=== PATIENT | female | born 1970 | race Caucasian/White ===

== ENCOUNTER → 2017-08-07 12:24 | Outpatient (CLI) | payer MEDICARE, MEDICAID, SELFPAY ==
[2017-08-07 12:49] LABS: Basophils # 0.1 K/mm3 (0-0.2); Basophils % 0.7 % (0.1-2.0); Eosinophils # 0.4 K/mm3 (0.0-0.4); Eosinophils % 3.5 % (0.1-12.0); Hematocrit 41.1 % (37.0-47.0); Hemoglobin 13.1 g/dL (12.2-16.2); Lymphocytes # 2.2 K/mm3 (0.7-4.5); Lymphocytes % 22.5 K/mm3 (10-50); Mean Corpuscular Hemoglobin 26.5 pg (27.0-31.2); Mean Corpuscular Volume 82.8 fl (81-99); Mean Platelet Volume 7.4 fl (7.4-10.4); Monocytes # 0.5 K/mm3 (0.1-1.0); Monocytes % 4.7 % (1.7-9.3); Neutrophils # 6.8 K/mm3 (1.8-7.8); Neutrophils % 68.6 % (37.0-80.0); Platelet Count 392 K/mm3 (142-424); Red Blood Count 4.97 M/mm3 (4.20-5.40); Red Cell Distribution Width 13.2 % (11.5-17.5); White Blood Count 9.9 K/mm3 (4.8-10.8)
[2017-08-07 13:53] LABS: Alanine Aminotransferase 51 U/L (12-78); Albumin Level 3.4 gm/dL (3.4-5.0); Albumin/Globulin Ratio 0.9 (1.1-1.8); Alkaline Phosphatase 82 U/L (46-116); Anion Gap 11.4 mEq/L (5-15); Aspartate Amino Transferase 49 U/L (15-37); Bilirubin,Total 0.3 mg/dL (0.2-1.0); Blood Urea Nitrogen 17 mg/dL (7-18); Calcium 9.3 mg/dL (8.5-10.1); Carbon Dioxide 30 mmol/L (21.0-32.0); Chloride 102 mmol/L (98-107); Creatinine,Serum 0.86 mg/dL (0.55-1.02); Estimated Glomerular Filt Rate > 60 ml/min (>60); GFR (African American) > 60 ML/MIN (>60); Glucose 100 mg/dL (74-106); Potassium 4.4 mmoL/L (3.5-5.1); Sodium 139 mmol/L (136-145); Total Protein,Serum 7.4 gm/dL (6.4-8.2)
[2017-08-08 17:18] LABS: Vitamin D 25 Hydroxy 30.3 ng/mL (30.0-100.0)
== END ==
PROVIDERS: PCP Nurse Practitioner Family; Visit Provider Nurse Practitioner Family
DX: K21.9 Gastro-esophageal reflux disease without esophagitis (principal); E55.9 Vitamin D deficiency, unspecified; M53.9 Dorsopathy, unspecified; G47.33 Obstructive sleep apnea (adult) (pediatric)
CPT/HCPCS: 36415; 80053; 82652; 85025

== ENCOUNTER → 2018-03-09 08:28 | Outpatient (CLI) | payer MEDICARE, MEDICAID, SELFPAY ==
--- NOTE | 2018-03-09 08:33 | MR_ITS ---
MR lumbar spine wo/w con, MR 3-d myelogram/MRCP HX back surgery XYRS ago. RT Leg numbness. LT leg tingling, numbness, and pain. LBP. HISTORY: ITS.REASON: ACUTE LEFT SIDED BACK PAIN WITH SCIATICA, LUMBAGO ORDERING PHYSICIAN: Renée Escudero PATIENT AGE: 48 years Comparison: MRI 02-14-11 TECHNIQUE: Standard multiplanar multiecho sequences are performed without contrast. 3-D MIP and myelographic images are also rendered and reviewed FINDINGS: There is normal alignment. The spinal cord ends at the L1-L2 level. T12-L1 and L1-L2 have an unremarkable appearance aside from slight decrease in the disc spaces at the levels. L2-L3: Mild concentric bulging disc. There is facet ligamentum flavum hypertrophy with moderate bilateral lateral recess and mild bilateral foraminal narrowing. L3-L4: Degenerative disc disease with moderate sized concentric bulging disc with broad-based disc protrusion centrally along with facet and ligamentum flavum hypertrophy with moderate bilateral foraminal narrowing and severe bilateral lateral recess narrowing with impingement upon both L4 nerve roots in transverse narrowing of the canal. This is similar when compared to the previous exam. L4-L5: Mild degenerative disc disease with bulging disc along with facet and ligamentum flavum hypertrophy with mild bilateral lateral recess and foraminal narrowing. L5-S1: Degenerative disc disease with bulging disc eccentric towards the left along with facet and ligamentum flavum hypertrophy with severe bilateral foraminal narrowing. The bulging disc does abut the anterior aspect of the left S1 nerve root. Postlaminectomy changes are present on the right at this level. There are type II endplate changes. No abnormal enhancement apparent. No acute fracture or other acute anomalies IMPRESSION: 1. Overall no significant change from 02/14/2011. 2. Multilevel lumbar spondylosis with degenerative disc disease, bulging disc, facet and ligamentum flavum hypertrophy with lateral recess and foraminal narrowing. Please above for detailed description at each level. There are postsurgical changes on the right L5-S1. No obvious epidural enhancement that would indicate epidural fibrosis 3. Degenerative disc disease at L3-L4 with moderate sized concentric bulging disc with broad-based disc protrusion centrally along with facet and ligamentum flavum hypertrophy with moderate bilateral foraminal narrowing and severe bilateral lateral recess narrowing with impingement upon both L4 nerve roots in transverse narrowing of the canal. This is similar when compared to the previous exam. 4. No disc herniation
--- NOTE | 2018-03-09 09:35 | HMH.ITSHM ---
HYDROCHLOROTHIAZIDE VESICARE TIZANIDINE TRAMADOL ESOMEPRAZOLE ESCITALOPRAM POTASSIUM DICLODENAC VITAMIN D-3
== END ==
PROVIDERS: Family Provider Internal Medicine Adolescent Medicine; PCP Nurse Practitioner Family; Visit Provider Nurse Practitioner Family
DX: M54.42 Lumbago with sciatica, left side (principal); M54.41 Lumbago with sciatica, right side; G89.29 Other chronic pain
CPT/HCPCS: 72158; 76376; A9576

== ENCOUNTER → 2018-06-02 09:39 | Outpatient (CLI) | payer MEDICARE, MEDICAID, SELFPAY ==
[2018-06-02 15:57] LABS: Alanine Aminotransferase 25 U/L (12-78); Albumin Level 3.3 gm/dL (3.4-5.0); Albumin/Globulin Ratio 0.8 (1.1-1.8); Alkaline Phosphatase 92 U/L (46-116); Anion Gap 12.9 mEq/L (5-15); Aspartate Amino Transferase 17 U/L (15-37); Bilirubin,Total 0.3 mg/dL (0.2-1.0); Blood Urea Nitrogen 14 mg/dL (7-18); Calcium 8.7 mg/dL (8.5-10.1); Carbon Dioxide 30 mmol/L (21.0-32.0); Chloride 100 mmol/L (98-107); Chol/HDL Ratio 3.6 (1-3.5); Cholesterol 160 mg/dL (140-200); Creatinine,Serum 0.92 mg/dL (0.55-1.02); Estimated Glomerular Filt Rate 66 ml/min (>60); GFR (African American) 80 ML/MIN (>60); Globulin 3.9 gm/dl (1.3-3.2); Glucose 99 mg/dL (74-106); HDL Cholesterol 45 mg/dL (29-89); LDL Cholesterol 81 mg/dL (0-130); Potassium 3.9 mmoL/L (3.5-5.1); Sodium 139 mmol/L (136-145); Total Protein,Serum 7.2 gm/dL (6.4-8.2); Triglycerides 168 mg/dL (30-200); VLDL Cholesterol 34 mg/dL (0-40)
[2018-06-03 14:45] LABS: Vitamin D 25 Hydroxy 39.9 ng/mL (30.0-100.0)
== END ==
PROVIDERS: PCP Nurse Practitioner Family; Visit Provider Nurse Practitioner Family
DX: Z00.00 Encounter for general adult medical examination without abnormal findings (principal); I10 Essential (primary) hypertension; E78.1 Pure hyperglyceridemia; E55.9 Vitamin D deficiency, unspecified
CPT/HCPCS: 36415; 80053; 80061; 82652

== ENCOUNTER → 2019-02-11 11:36 | Outpatient (CLI) | payer MEDICARE, MEDICAID, SELFPAY ==
--- NOTE | 2019-02-11 11:45 | XR_ITS ---
XR hip RT 2-3V w/pelvis HISTORY: ITS.REASON: RIGHT HIP PAIN ORDERING PHYSICIAN: Renée Escudero APRN PATIENT AGE: 49 years COMPARISON: None FINDINGS: No fracture or dislocation is evident. No significant degenerative change. No lytic or blastic change. There is an oval density in the right pelvic region measuring 14 x 7 mm. This could represent a nondigested tablet or a soft tissue calcification. Facet arthritic changes are present at the lumbosacral junction. There are mild degenerative changes in the SI joints IMPRESSION: Negative right hip. Degenerative changes SI joints and facets in the lower lumbar spine
== END ==
PROVIDERS: PCP Nurse Practitioner Family; Visit Provider Nurse Practitioner Family
DX: M25.551 Pain in right hip (principal)
CPT/HCPCS: 73502

== ENCOUNTER → 2019-04-12 09:37 | Outpatient (CLI) | payer MEDICARE, MEDICAID, SELFPAY ==
[2019-04-12 10:55] LABS: Alanine Aminotransferase 29 U/L (12-78); Albumin Level 3.2 gm/dL (3.4-5.0); Albumin/Globulin Ratio 0.8 (1.1-1.8); Alkaline Phosphatase 76 U/L (46-116); Anion Gap 10.6 mEq/L (5-15); Aspartate Amino Transferase 20 U/L (15-37); Bilirubin,Total 0.3 mg/dL (0.2-1.0); Blood Urea Nitrogen 14 mg/dL (7-18); Calcium 9.3 mg/dL (8.5-10.1); Carbon Dioxide 30 mmol/L (21.0-32.0); Chloride 103 mmol/L (98-107); Chol/HDL Ratio 3.4 (1-3.5); Cholesterol 159 mg/dL (140-200); Creatinine,Serum 0.91 mg/dL (0.55-1.02); Estimated Glomerular Filt Rate 66 ml/min (>60); GFR (African American) 80 ML/MIN (>60); Globulin 3.8 gm/dl (1.3-3.2); Glucose 101 mg/dL (74-106); HDL Cholesterol 47 mg/dL (29-89); LDL Cholesterol 74 mg/dL (0-130); Potassium 4.6 mmoL/L (3.5-5.1); Sodium 139 mmol/L (136-145); Triglycerides 189 mg/dL (30-200); VLDL Cholesterol 38 mg/dL (0-40)
[2019-04-13 10:33] LABS: Vitamin D 25 Hydroxy 30.3 ng/mL (30.0-100.0)
== END ==
PROVIDERS: Visit Provider Nurse Practitioner Family
DX: I10 Essential (primary) hypertension (principal); E78.1 Pure hyperglyceridemia; E55.9 Vitamin D deficiency, unspecified
CPT/HCPCS: 36415; 80053; 80061; 82652

== ENCOUNTER → 2019-09-23 16:54 | Outpatient (CLI) | payer MEDICARE, MEDICAID, SELFPAY ==
--- NOTE | 2019-09-23 17:16 | XR_ITS ---
PROCEDURE: XR KNEE RT 4V CLINICAL INDICATION: RIGHT ANTERIOR KNEE PAIN COMPARISON: KNEEAPSB KNEE-AP STANDING-BOTH KNEES from 08/27/2012 FINDINGS: No fracture or dislocation. No lytic or blastic change. There is normal mineralization. There is mild osteoarthritis at the medial compartment cartilaginous joint space. Remaining joint spaces are preserved Other findings:. IMPRESSION: Mild medial compartment osteoarthritis. Dictated by: Heriberto Gibson 09/24/2019 08:48 Electronically signed by Heriberto Gibson in [place] 09/24/2019 08:48
[2019-09-23 19:04] LABS: Chloride 99 mmol/L (98-107); Potassium 4.7 mmoL/L (3.5-5.1); Sodium 138 mmol/L (136-145)
[2019-09-23 19:07] LABS: Anion Gap 12.7 mEq/L (5-15); Blood Urea Nitrogen 23 mg/dl (7-17); Carbon Dioxide 31 mmol/L (22.0-30.0); Estimated Glomerular Filt Rate 67 ml/min (>60); GFR (African American) 81 ML/MIN (>60)
[2019-09-23 19:08] LABS: Calcium 9.7 mg/dl (8.4-10.2); Glucose 93 mg/dl (74-100)
== END ==
PROVIDERS: PCP Nurse Practitioner Family; Visit Provider Nurse Practitioner Family
DX: I10 Essential (primary) hypertension (principal); M25.561 Pain in right knee
CPT/HCPCS: 36415; 73564; 80048

== ENCOUNTER → 2020-02-14 12:05 | Outpatient (CLI) | payer MEDICARE, MEDICAID, SELFPAY ==
[2020-02-14 13:24] LABS: Basophils # 0.1 K/mm3 (0-0.2); Basophils % 1.1 % (0.1-2.0); Eosinophils # 0.4 K/mm3 (0.0-0.4); Eosinophils % 4.3 % (0.1-12.0); Hemoglobin 13.6 g/dL (12.2-16.2); Lymphocytes # 2.8 K/mm3 (0.7-4.5); Lymphocytes % 27.4 % (10-50); Mean Corpuscular HGB Conc 32.4 g/dL (31.8-35.4); Mean Corpuscular Hemoglobin 27.4 pg (27.0-31.2); Mean Corpuscular Volume 84.4 fl (81-99); Mean Platelet Volume 8.4 fl (7.4-10.4); Monocytes # 0.6 K/mm3 (0.1-1.0); Monocytes % 5.8 % (1.7-9.3); Neutrophils # 6.2 K/mm3 (1.8-7.8); Neutrophils % 61.4 % (37.0-80.0); Platelet Count 411 K/mm3 (142-424); Red Blood Count 4.97 M/mm3 (4.20-5.40); Red Cell Distribution Width 13.3 % (11.5-17.5); White Blood Count 10.1 K/mm3 (4.8-10.8)
[2020-02-14 13:41] LABS: Chloride 99 mmol/L (98-107); Potassium 4.1 mmoL/L (3.5-5.1); Sodium 137 mmol/L (136-145)
[2020-02-14 13:44] LABS: Alanine Aminotransferase 51 U/L (12-78); Albumin Level 4.1 g/dl (3.5-5.0); Albumin/Globulin Ratio 1.2 (1.1-1.8); Alkaline Phosphatase 89 U/L (38-126); Anion Gap 13.1 mEq/L (5-15); Aspartate Amino Transferase 59 U/L (14-36); Bilirubin,Total 0.6 mg/dl (0.2-1.3); Blood Urea Nitrogen 19 mg/dl (7-17); Carbon Dioxide 29 mmol/L (22.0-30.0); Estimated Glomerular Filt Rate 67 ml/min (>60); GFR (African American) 81 ML/MIN (>60); Globulin 3.3 g/dL (1.3-3.2); Total Protein,Serum 7.4 g/dl (6.3-8.2)
[2020-02-14 13:45] LABS: Calcium 9.5 mg/dl (8.4-10.2); Glucose 98 mg/dl (74-100)
[2020-02-14 14:17] LABS: Thyroid Stimulating Hormone 2.41 uIU/mL (0.465-4.68)
== END ==
PROVIDERS: Visit Provider Nurse Practitioner Family
DX: I10 Essential (primary) hypertension (principal); R63.5 Abnormal weight gain
CPT/HCPCS: 36415; 80053; 84443; 85025

== ENCOUNTER → 2020-05-22 12:11 | Outpatient (CLI) | payer MEDICARE, MEDICAID, SELFPAY ==
[2020-05-22 13:02] LABS: Chloride 99 mmol/L (98-107); Sodium 138 mmol/L (136-145)
[2020-05-22 13:03] LABS: Potassium 4.2 mmoL/L (3.5-5.1)
[2020-05-22 13:05] LABS: Alanine Aminotransferase 40 U/L (12-78); Albumin Level 3.9 g/dl (3.5-5.0); Albumin/Globulin Ratio 1.2 (1.1-1.8); Alkaline Phosphatase 90 U/L (38-126); Anion Gap 13.2 mEq/L (5-15); Aspartate Amino Transferase 57 U/L (14-36); Bilirubin,Total 0.5 mg/dl (0.2-1.3); Blood Urea Nitrogen 16 mg/dl (7-17); Calcium 9.6 mg/dl (8.4-10.2); Carbon Dioxide 30 mmol/L (22.0-30.0); Estimated Glomerular Filt Rate 77 ml/min (>60); GFR (African American) 93 ML/MIN (>60); Globulin 3.3 g/dL (1.3-3.2); Glucose 119 mg/dl (74-100); Total Protein,Serum 7.2 g/dl (6.3-8.2)
[2020-05-23 08:17] LABS: Hep A Ab, IgM Negative (Negative); Hepatitis B Core Antibody IgM Negative (Negative); Hepatitis B Surface Antigen Negative (Negative)
[2020-05-23 08:19] LABS: Hepatitis C Antibody <0.1 s/co ratio (0.0-0.9)
== END ==
PROVIDERS: Visit Provider Nurse Practitioner Family
DX: R79.89 Other specified abnormal findings of blood chemistry (principal); R94.5 Abnormal results of liver function studies
CPT/HCPCS: 36415; 80053; 80074

== ENCOUNTER → 2020-06-19 10:40 | Outpatient (CLI) | payer MEDICARE, MEDICAID, SELFPAY ==
--- NOTE | 2020-06-19 10:49 | CT_ITS ---
PROCEDURE: CT ABDOMEN PELVIS W CON CLINICAL INDICATION: ABD PAIN,NAUSEA, generalized abdominal pain with nausea and vomiting COMPARISON: CT ABDPELW CT ABD PELVIS W/ CONTRAST from 04/23/2016 TECHNIQUE: IV Contrast: 75ML Isovue 370 Oral Contrast None Axial images obtained with sagittal and coronal reformats. All CT scans at the facility use one or more dose reduction, viz: automated exposure control, ma/kV adjustment per patient size (including targeted exams where dose is matched to indication, i.e. head), or iterative reconstruction technique. FINDINGS: LOWER THORAX: No acute finding ABDOMEN & PELVIS: There is fatty liver with hepatomegaly. The liver measures 24 cm cephalad caudad and 25 cm AP. The spleen is mildly enlarged at approximately 14 cm. The adrenal glands, pancreas, have an unremarkable appearance. There are some small periportal lymph nodes not significantly changed. There is mild scarring of the right kidney. No renal or ureteral calculi. No hydronephrosis. There is a small umbilical hernia containing fat. The appendix does not appear distended. There is some soft tissue density along the posterior aspect of the appendix on image number 78 series 3. This may be related to adjacent unopacified small bowel. This could be confirmed with repeat exam with oral contrast if clinically desired. No evidence of diverticulitis, intestinal obstruction, or free air. No pelvic mass or abnormal fluid collection evident. There are degenerative changes in the lumbar spine with degenerative disc disease at L5-S1. There is mild degenerative change of the hips and right SI joint. There is sclerosis of the right SI joint. IMPRESSION: 1. Hepatosplenomegaly with fatty liver. 2. The appendix does not appear thickened or distended. There is some soft tissue attenuation posterior to the appendix as described above in may be due to adjacent unopacified bowel. If there is clinical concern for appendicitis then repeating exam with oral contrast may confirm the above findings. Dictated by: Oliver Hatch MD 06/19/2020 12:30 Oliver Hatch MD in [place] 06/19/2020 12:30
== END ==
PROVIDERS: PCP Nurse Practitioner Family; Visit Provider Nurse Practitioner Family
DX: R10.9 Unspecified abdominal pain (principal); R11.0 Nausea
CPT/HCPCS: 74177; Q9967

== ENCOUNTER → 2020-10-24 13:36 | Outpatient (CLI) | payer MEDICARE, MEDICAID, SELFPAY ==
--- NOTE | 2020-10-24 13:45 | XR_ITS ---
PROCEDURE: XR KNEE LT 3V CLINICAL INDICATION: PRIMARY OSTEOARTHRITIS OF LT KNEE COMPARISON: CR KNEEAPSB KNEE-AP STANDING-BOTH KNEES from 08/27/2012 CR XR KNEE RT 4V from 09/23/2019 FINDINGS: There are mild osteoarthritic changes of the knee involving all 3 compartments. No acute fracture or dislocation. No lytic or blastic change. Other findings:None. IMPRESSION: Mild osteoarthritis of the left knee Dictated by: Oliver Hatch MD 10/24/2020 14:13 Oliver Hatch MD in [facility] 10/24/2020 14:13
== END ==
PROVIDERS: PCP Nurse Practitioner Family; Visit Provider Nurse Practitioner Family
DX: M17.12 Unilateral primary osteoarthritis, left knee (principal)
CPT/HCPCS: 73562

== ENCOUNTER → 2020-11-20 12:54 | Outpatient (CLI) | payer MEDICARE, MEDICAID, SELFPAY ==
--- NOTE | 2020-11-20 12:57 | MM_ITS ---
PROCEDURE: MM DIG SCREENING MAMM BI W/CAD Digital Breast Tomosynthesis Included CLINICAL INDICATION: SCREENING There is no personal or family history of breast cancer. COMPARISON: MG DIGMAMMS MAMMOGRAM SCREEN-GLOBAL SECURITY ARCHITECT N/C from 03/17/2007 MG DMSB DIG MAMM-SCREEN DOMINICK from 01/02/2016 MG DMSB DIG MAMM-SCREEN DOMINICK W/CAD from 03/31/2017 TECHNIQUE: Standard CC and MLO images and 3D Tomosynthesis was obtained. R2 CAD reviewed. FINDINGS: Mild diffuse fibroglandular densities are seen breast. There are tiny benign-appearing nodular low in the axilla bilaterally likely small low-lying nodes. There is a tiny benign-appearing nodular density just deep and superior to the nipple left breast. This was not definitely seen on the previous mammograms and though likely benign recommend the patient return for spot compression views and ultrasound. There is no suspicious lesion and no suspicious microcalcifications. IMPRESSION: Fibrofatty parenchyma with tiny asymmetric density left breast BI-RAD Category: 0 Need Additional Imaging Evaluation FOLLOW-UP: IMM Immediate Follow-up Recommended (A letter has been sent to the patient regarding results of the study.) Dictated by: Dr. Baldomero Cardona MD 11/21/2020 08:29 Dr. Baldomero Cardona MD in [place] 11/21/2020 08:29
== END ==
PROVIDERS: PCP Nurse Practitioner Family; Visit Provider Nurse Practitioner Family
DX: Z12.31 Encounter for screening mammogram for malignant neoplasm of breast (principal)
CPT/HCPCS: 77063; 77067

== ENCOUNTER → 2020-12-27 13:25 | Outpatient (CLI) | payer MEDICARE, MEDICAID, SELFPAY ==
--- NOTE | 2020-12-27 13:28 | US_ITS ---
PROCEDURE: MM DIG MAMM DX UNILAT LT CAD Digital Breast Tomosynthesis Included CLINICAL INDICATION: ABN MAMM OF LT BREAST Follow-up abnormal mammogram COMPARISON: MG DMSB DIG MAMM-SCREEN DOMINICK from 01/02/2016 MG DMSB DIG MAMM-SCREEN DOMINICK W/CAD from 03/31/2017 MG MM DIG SCREENING MAMM BI W/CAD from 11/20/2020 US US BREAST LT COMPLETE from 12/27/2020 TECHNIQUE: Problem solving views performed of the left breast along with left breast ultrasound FINDINGS: Mostly fatty replaced fibroglandular tissue. The asymmetric density in the retroareolar region is once again noted but less apparent on the spot views. No spiculations or malignant-appearing calcifications. Left breast ultrasound: At the 1 o'clock region there is a 4 mm hypoechoic area with no shadowing or spiculation wider than tall. This could correspond to the mammographic abnormality and may represent a small complex cyst. IMPRESSION: Probably benign findings. Recommend six-month mammographic and sonographic follow-up BI-RAD Category: 3 Probably Benign Finding Short Term Follow-Up FOLLOW-UP: 6M 6 Month Follow-up (A letter has been sent to the patient regarding results of the study.) Dictated by: Oliver Hatch MD 01/05/2021 10:13 Oliver Hatch MD in [place] 01/05/2021 10:13
== END ==
PROVIDERS: PCP Nurse Practitioner Family; Visit Provider Nurse Practitioner Family
DX: R92.8 Other abnormal and inconclusive findings on diagnostic imaging of breast (principal)
CPT/HCPCS: 76641; 77061; 77065; G0279

== ENCOUNTER 2021-03-05 12:51 | Emergency (ER) | payer MEDICARE, MEDICAID, SELFPAY ==
--- NOTE | 2021-03-05 13:00 | XR_ITS ---
PROCEDURE: XR ANKLE RT MIN 3V CLINICAL INDICATION: PAIN COMPARISON: No exams were available for comparison FINDINGS: Acute avulsion fractures present at the tip of the lateral malleolus. The fracture fragment does not appear significantly displaced. There is overlying soft tissue swelling. Ankle mortise is preserved. The joint spaces are well-preserved. No significant degenerative/arthritic changes. No erosive changes evident. Other findings:None. IMPRESSION: Acute nondisplaced avulsion fracture at the tip of the lateral malleolus Dictated by: Oliver Hatch MD 03/05/2021 13:18 Oliver Hatch MD in [place] 03/05/2021 13:18
[2021-03-05 13:05] VITALS: BP 109/65; PULSE 87; RESP 22; TEMP 36.9; O2SAT 97; BMI 40.0
--- NOTE | 2021-03-05 13:42 | HMH.EDUTC ---
[facility] [place]ression: Avulsion fracture of ankle Qualifiers: Encounter type: initial encounter Fracture type: closed Laterality: right Qualified Code(s): S82.891A - Other fracture of right lower leg, initial encounter for closed fracture Disposition: Home, Self-Care Condition on Discharge: Good Instructions: Ankle Fracture, DI for Ankle Fracture, DI for Avulsion Fracture, How To Perform RICE (Rest, Ice, Compress, Elevate) Additional Instructions: *RICE, Rest the extremity, Ice 15-20 minutes 3-4 times daily, Compress- wear the brian wrap as discussed as much as possible to help reduce swelling and pain, Elevate the extremity when at rest *Walking boot is for support and help control swelling, Be sure that is not to tight but not to loose either Use crutches to ambulate and get around *Elevate when resting *Ibuprofen every 6-8 hours as needed for pain an inflammation. If need something more can take Tylenol in between doses of Ibuprofen to help Immediately follow up with your family doctor for new or worsening of symptoms, or no noticeable improvement over the next 3-5 days Follow up with Dr Oates in the office on 03/08/21 @ 10am as scheduled Return if needed Straight to ER if any life threatening symptoms Referrals: Renée Escudero APRN [Primary Care Provider] - Una Oates DPM [Staff Physician] - 03/08/21 10:00 am Time of Disposition: 13:47 Medical Decision Making - Chad Inquiry Pt receiving controlled substance: No Chad was queried for this patient: No Vital Signs: 03/05/21 13:05 03/05/21 13:49 Temperature 98.5 F 98.5 F Temperature Source Oral Pulse Rate 87 Pulse Rate [Right Brachial] 87 Respiratory Rate 22 22 Blood Pressure 109/65 L Blood Pressure [Right Arm] 109/65 L Blood Pressure Mean [Right Arm] 79 Blood Pressure Source [Right Arm] Automatic Cuff Blood Pressure Position [Right Arm] Sitting 02 Sat by Pulse Oximetry 97 Oxygen Delivery Method Room Air - Radiology Data #1 Image(s): Ankle Image Reviewed: Yes I reviewed the patient's radiology image avulsion fracture of tip of lateral malleolus - Physician Consults Physician Consulted: Dr Oates Time: 13:43 Reason -: Podiatry Eval/Care Comment/Response: Dr Oates looked at xray and agreed advised walking boot, crutches and they would see her in the office on at 10am [facility] [place] - General Stated complaint: ao @ 1240 injury to Rt ankle Time Seen by Provider: 03/05/21 13:43 Mode of Arrival: Ambulatory Source of Information: Patient Limitations: No Limitations Description of Symptoms (Recalled from Triage Doc. by RN): PATIENT STATES SHE FELL THIS MORNING AND INJURED RIGHT ANKLE HEENT Symptoms (Recalled from RN notes): No Resp Symptoms (Recalled from RN notes): No Skin Symptoms (Recalled from RN notes): No MS Symptoms (Recalled from RN notes): Yes Functional Status (Recalled from RN notes): WNL - History of Present Illness Provider Complaint: Patient states that she was carrying some stuff and thinks she stepped on the side of the concrete and rolled her right ankle States that she felt a pop and immediately had pain and swelling in her ankle and unable to put weight on it States that swelling continued to get worse so she came in - Related Data Home Medications Medication Instructions Recorded Confirmed diclofenac sodium 50 mg PO 10/15/19 10/15/19 tablet,delayed release esomeprazole magnesium 40 mg mg PO 10/15/19 10/15/19 capsule,delayed release fluticasone propionate 50 INTRANASAL 10/15/19 10/15/19 mcg/actuation nasal spray,suspension hydrochlorothiazide 25 mg tablet PO 10/15/19 10/15/19 potassium chloride 10 mEq meq PO 10/15/19 10/15/19 tablet,extended release solifenacin 10 mg tablet mg PO 10/15/19 10/15/19 tizanidine 4 mg tablet mg PO 10/15/19 10/15/19 tramadol 50 mg tablet mg PO 10/15/19 10/15/19 venlafaxine 75 mg capsule,extended mg PO 10/15/19 10/15/19 release 24 hr Pr
[2021-03-05 13:49] VITALS: BP 109/65; PULSE 87; RESP 22; TEMP 36.9; O2SAT 97
== END 2021-03-05 14:20 | disposition home or self-care (01) ==
PROVIDERS: Emergency Provider Nurse Practitioner; PCP Nurse Practitioner Family
DX: S82.64XA Nondisplaced fracture of lateral malleolus of right fibula, initial encounter for closed fracture (principal); X50.1XXA Overexertion from prolonged static or awkward postures, initial encounter; Y92.89 Other specified places as the place of occurrence of the external cause; I10 Essential (primary) hypertension; K21.9 Gastro-esophageal reflux disease without esophagitis; F41.8 Other specified anxiety disorders
CPT/HCPCS: 29515; G0463; 73610; 99202

== ENCOUNTER → 2021-03-21 13:56 | Outpatient (CLI) | payer MEDICARE, MEDICAID, SELFPAY ==
--- NOTE | 2021-03-21 13:56 | CT_ITS ---
PROCEDURE: CT ANKLE RT WO CON CLINICAL HISTORY: right ankle pain/injury COMPARISON: CR XR ANKLE RT MIN 3V from 03/05/2021 TECHNIQUE: Axial images obtained with sagittal and coronal reformats. All CT scans at the facility use one or more dose reduction, viz: automated exposure control, ma/kV adjustment per patient size (including targeted exams where dose is matched to indication, i.e. head), or iterative reconstruction technique. FINDINGS: Acute avulsion fracture involves the tip of the lateral malleolus. Fracture fragment measures 9 x 4 mm with no significant displacement. No other fractures are evident. There are mild osteoarthritic changes of the posterior subtalar joint. There is a small os trigonum with subchondral cystic changes of the posterior aspect of the talus at the junction with the os trigonum. Mild soft tissue swelling noted over the lateral malleolar region. The tibiofibular joint appears intact. The ankle mortise is preserved. The talar dome has an unremarkable appearance. There is a type 1 os navicularis. IMPRESSION: Nondisplaced avulsion fracture of the distal fibula as described above. Dictated by: Oliver Hatch MD 03/22/2021 08:33 Oliver Hatch MD in [place] 03/22/2021 08:33
== END ==
PROVIDERS: PCP Nurse Practitioner Family; Visit Provider Podiatrist
DX: S82.891A Other fracture of right lower leg, initial encounter for closed fracture (principal); S82.64XA Nondisplaced fracture of lateral malleolus of right fibula, initial encounter for closed fracture; S82.54XA Nondisplaced fracture of medial malleolus of right tibia, initial encounter for closed fracture
CPT/HCPCS: 73700

== ENCOUNTER → 2021-04-02 14:08 | Outpatient (CLI) | payer MEDICARE, MEDICAID, SELFPAY ==
--- NOTE | 2021-04-02 14:15 | XR_ITS ---
PROCEDURE: XR ANKLE WT BEARING RT MIN 3V CLINICAL INDICATION: fracture evaluation COMPARISON: CR XR ANKLE RT MIN 3V from 03/05/2021 FINDINGS: Avulsion fracture of the tip of the lateral malleolus once again noted. Fracture line is less visible medially. Fracture is nondisplaced. Ankle mortise is preserved and the talar dome has an unremarkable appearance. IMPRESSION: Healing nondisplaced fracture at the tip the lateral malleolus Dictated by: Oliver Hatch MD 04/03/2021 15:58 Oliver Hatch MD in [place] 04/03/2021 15:58
== END ==
PROVIDERS: PCP Nurse Practitioner Family; Visit Provider Podiatrist
DX: T14.8XXA Other injury of unspecified body region, initial encounter (principal); S82.891D Other fracture of right lower leg, subsequent encounter for closed fracture with routine healing; S82.54XD Nondisplaced fracture of medial malleolus of right tibia, subsequent encounter for closed fracture with routine healing
CPT/HCPCS: 73610

== ENCOUNTER → 2021-04-30 11:07 | Outpatient (CLI) | payer MEDICARE, MEDICAID, SELFPAY ==
--- NOTE | 2021-04-30 11:11 | XR_ITS ---
PROCEDURE: XR ANKLE WT BEARING RT MIN 3V CLINICAL INDICATION: fracture followup COMPARISON: CR XR ANKLE RT MIN 3V from 03/05/2021 CR XR ANKLE WT BEARING RT MIN 3V from 04/02/2021 FINDINGS: Bones: Nondisplaced fracture involves the tip of the lateral malleolus. Fracture line is still visible Joints: The joint spaces are well-preserved. No significant degenerative/arthritic changes. No erosive changes evident. Other findings:Ankle mortise is preserved IMPRESSION: No change nondisplaced healing fracture at the tip of the lateral malleolus Dictated by: Oliver Hatch MD 04/30/2021 12:00 Oliver Hatch MD in [place] 04/30/2021 12:00
== END ==
PROVIDERS: PCP Nurse Practitioner Family; Visit Provider Podiatrist
DX: S82.61XA Displaced fracture of lateral malleolus of right fibula, initial encounter for closed fracture (principal); S99.911A Unspecified injury of right ankle, initial encounter; T14.8XXA Other injury of unspecified body region, initial encounter
CPT/HCPCS: 73610

== ENCOUNTER 2021-07-01 09:52 | Emergency (ER) | payer MEDICARE, MEDICAID, SELFPAY ==
[2021-07-01] VITALS (12 sets, daily range): BP systolic 107–140; BP diastolic 51–93; PULSE 107–119; RESP 12–18; TEMP 37.4; O2SAT 90–96; BMI 32.3; BMI 47.5
--- NOTE | 2021-07-01 09:58 | XR_ITS ---
PROCEDURE INFORMATION: Exam: XR Chest Exam date and time: 07/01/2021 9:58 AM Age: 51 years old Clinical indication: Shortness of breath; Additional info: SOB, covid positive TECHNIQUE: Imaging protocol: XR of the chest. Views: 1 view. COMPARISON: CT ABDOMEN PELVIS W CON 06/19/2020 11:48 AM FINDINGS: Lungs: No consolidation. Pleural spaces: No pleural effusion. No pneumothorax. Heart/Mediastinum: No cardiomegaly. Bones/joints: There are degenerative changes of the spine. IMPRESSION: 1. No evidence of active pulmonary disease. 2. A followup PA and lateral radiograph is recommended when the patient is clinically able.
--- NOTE | 2021-07-01 09:59 | HMH.EDGENADL ---
ED Disposition Clinical Impression: COVID, Tachycardia Disposition: Home, Self-Care Condition on Discharge: Good Additional Instructions: Home medications as directed. Tylenol/Motrin for aches and pains. Return to emergency department shortness of breath, chest pain. Referrals: Renée Escudero APRN [Primary Care Provider] - 3 days Time of Disposition: 11:06 - Critical Care Critical Care Time: No Attestation: On 07/01/21, the high probability of a clinically significant, sudden or life threatening deterioration of the following system(s) required my full and direct attention, intervention and personal management. The time I documented below is in addition to time spent performing reported procedures but includes the following listed in this critical care notation. Medical Decision Making - Medical Records Medical records reviewed: Yes: I reviewed the patient's medical records. - Chad Inquiry Pt receiving controlled substance: No Vital Signs: 07/01/21 10:04 07/01/21 10:42 Temperature 99.3 F Temperature Source Oral Pulse Rate 117 H Pulse Rate [Right Radial] 119 H Respiratory Rate 18 Blood Pressure 122/59 L Blood Pressure [Right Arm] 107/51 L Blood Pressure Mean 80 Blood Pressure Mean [Right Arm] 69 Blood Pressure Source [Right Arm] Automatic Cuff Blood Pressure Position [Right Arm] Supine 02 Sat by Pulse Oximetry 96 96 Oxygen Delivery Method Room Air - Lab Data Lab results reviewed: Yes: I reviewed the patient's lab results. Lab Results 07/01/21 10:05: WBC 5.8, RBC 4.87, Hgb 13.5, Hct 40.1, MCV 82.3, MCH 27.6, MCHC 33.6, RDW 13.3, Plt Count 304, MPV 7.8, Neut % (Auto) 73.9, Lymph % (Auto) 16.4, Jones % (Auto) 7.7, Eos % (Auto) 0.8, Baso % (Auto) 1.3, Neut # (Auto) 4.3, Lymph # (Auto) 1.0, Jones # (Auto) 0.5, Eos # (Auto) 0.0, Baso # (Auto) 0.1 07/01/21 10:05: Sodium 135 L, Potassium 4.2, Chloride 97 L, Carbon Dioxide 29, Anion Gap 13.2, BUN 13, Creatinine 1.00, Estimated Creat Clear 54, Estimated GFR 59, Est GFR ( Amer) 71, Glucose 148 H, Calcium 9.1, Total Bilirubin 0.2, AST 43 H, ALT 32, Alkaline Phosphatase 110, Troponin I < 0.01, Total Protein 7.4, Albumin 4.1, Globulin 3.3 H, Albumin/Globulin Ratio 1.2 07/01/21 10:05: SARS-CoV-2 (PCR) Detected A, Influenza A Untype (PCR) Not detected, Influenza Type B (PCR) Not detected 07/01/21 10:31: Urine Color Yellow, Urine Appearance Clear, Urine pH 6.0, Ur Specific Bowie 1.020, Urine Protein Trace, Urine Glucose (UA) Negative, Urine Ketones Negative, Urine Blood Trace-l, Urine Nitrate Negative, Urine Bilirubin Negative, Urine Urobilinogen 0.2, Ur Leukocyte Esterase Negative, Urine RBC Occasional, Urine WBC 3-5, Ur Squamous Epith Cells 3-5, Urine Bacteria Trace Result diagrams: 07/01/21 10:05 07/01/21 10:05 Orders (Tests/Meds): ED MEDICATIONS Generic Name Dose Route Start Last Admin Trade Name Freq PRN Reason Stop Dose Admin Diphenhydramine HCl 25 mg 07/01/21 11:15 Diphenhydramine 50mg/Ml Vial IV 07/01/21 16:00 ONCE PRN INFUSION REACTION Hydrocortisone Sodium Succinate 100 mg 07/01/21 11:15 Hydrocortisone Sod Succinate 100mg Vial IV 07/01/21 16:00 ONCE PRN INFUSION REACTION Sodium Chloride 1,000 mls @ 100 mls/hr 07/01/21 11:15 Sod Chlor 0.9% 1000ml Bag IV 07/01/21 16:00 .Q10H PRN INFUSION REACTION Loratadine 10 mg 07/01/21 11:15 Loratadine 10mg Tablet PO 07/01/21 16:00 ONCE PRN INFUSION REACTION Discontinued Medications Generic Name Dose Route Start Last Admin Trade Name Freq PRN Reason Stop Dose Admin Casirivimab/Imdevimab 10 ml/ 110 mls @ 220 mls/hr 07/01/21 11:15 07/01/21 11:46 Sodium Chloride IV 07/01/21 11:44 220 mls/hr ONCE ONE Administration Lactated Ringer's 1,000 mls @ 999 mls/hr 07/01/21 11:15 11/28/21 11:16 Lactated Ringer's 1000 Ml Bag IV 07/01/21 12:15 999 mls/hr .Q1H1M DENA Administration Ibuprofen 800 mg 07/01/21 11:47
[2021-07-01 10:17] LABS: Influenza A, PCR Not Detected (NotDetected); Influenza B, PCR Not Detected (NotDetected)
[2021-07-01 10:20] LABS: Basophils # 0.1 K/mm3 (0-0.2); Basophils % 1.3 % (0.1-2.0); Eosinophils % 0.8 % (0.1-12.0); Hematocrit 40.1 % (37.0-47.0); Hemoglobin 13.5 g/dL (12.2-16.2); Lymphocytes % 16.4 % (10-50); Mean Corpuscular HGB Conc 33.6 g/dL (31.8-35.4); Mean Corpuscular Hemoglobin 27.6 pg (27.0-31.2); Mean Corpuscular Volume 82.3 fl (81-99); Mean Platelet Volume 7.8 fl (7.4-10.4); Monocytes # 0.5 K/mm3 (0.1-1.0); Monocytes % 7.7 % (1.7-9.3); Neutrophils # 4.3 K/mm3 (1.8-7.8); Neutrophils % 73.9 % (37.0-80.0); Platelet Count 304 K/mm3 (142-424); Red Blood Count 4.87 M/mm3 (4.20-5.40); Red Cell Distribution Width 13.3 % (11.5-17.5); White Blood Count 5.8 K/mm3 (4.8-10.8)
[2021-07-01 10:23] LABS: Chloride 97 mmol/L (98-107); Potassium 4.2 mmoL/L (3.5-5.1); Sodium 135 mmol/L (136-145)
[2021-07-01 10:26] LABS: Alanine Aminotransferase 32 U/L (12-78); Albumin Level 4.1 g/dl (3.5-5.0); Albumin/Globulin Ratio 1.2 (1.1-1.8); Alkaline Phosphatase 110 U/L (38-126); Anion Gap 13.2 mEq/L (5-15); Aspartate Amino Transferase 43 U/L (14-36); Bilirubin,Total 0.2 mg/dl (0.2-1.3); Blood Urea Nitrogen 13 mg/dl (7-17); Carbon Dioxide 29 mmol/L (22.0-30.0); Creatinine Clearance Estimated 54 mL/min (50-200); Estimated Glomerular Filt Rate 59 ml/min (>60); GFR (African American) 71 ML/MIN (>60); Globulin 3.3 g/dL (1.3-3.2); Total Protein,Serum 7.4 g/dl (6.3-8.2)
[2021-07-01 10:27] LABS: Calcium 9.1 mg/dl (8.4-10.2); Glucose 148 mg/dl (74-100)
--- NOTE | 2021-07-01 10:35 | ECG_ITS ---
APPROVED REPORT Exam: Resting ECG HR:115 bpm ECG Measurements Heart Rate 115 AXES NJ 150 P 19 QRSd 76 QRS 25 QT 316 T 30 QTc 437 Conclusion Sinus tachycardia Otherwise normal ECG Electronically signed by : Burton Rivera MD 07/02/2021 14:24:00
[2021-07-01 10:41] LABS: Troponin I < 0.01 ng/ml (0.00-0.034)
[2021-07-01 10:42] LABS: Coronavirus 19, PCR Detected (NotDetected)
[2021-07-01 10:48] LABS: Microscopic, Urine URINE MICROSCOPIC (MICROSCOPIC)
[2021-07-01 10:52] LABS: Appearance,Urine CLEAR (Clear); Bilirubin,Urine Negative (Negative); Blood, Urine TRACE-L (Negative); Color,Urine YELLOW (Yellow); Glucose,Urine (UA) Negative (Negative); Ketones,Urine Negative (Negative); Leukocyte Esterase,Urine Negative (Negative); Nitrate,Urine Negative (Negative); Protein,Urine TRACE (Negative); Urobilinogen,Urine 0.2 EU/dl (0.2)
[2021-07-01 11:08] LABS: Bacteria,Urine Trace /lpf; RBC,Urine Occasional #/hpf (0-3)
--- NOTE | 2021-07-03 14:42 | PC.NURSE ---
pt. notified of positive covid result.
== END 2021-07-01 13:10 | disposition home or self-care (01) ==
PROVIDERS: Emergency Provider Family Medicine; PCP Nurse Practitioner Family
DX: U07.1 COVID-19 (principal); R00.0 Tachycardia, unspecified; F41.8 Other specified anxiety disorders; K21.9 Gastro-esophageal reflux disease without esophagitis
CPT/HCPCS: 71045; 80053; 81001; 84484; 85025; 93005; 96365; 96366; 96375; 99284; C9803; J2405; U0003; U0005

== ENCOUNTER → 2021-08-13 09:35 | Outpatient (CLI) | payer MEDICARE, MEDICAID, SELFPAY ==
[2021-08-13 09:58] LABS: Basophils # 0.1 K/mm3 (0-0.2); Basophils % 1.1 % (0.1-2.0); Eosinophils # 0.5 K/mm3 (0.0-0.4); Hematocrit 40.3 % (37.0-47.0); Hemoglobin 13.1 g/dL (12.2-16.2); Lymphocytes % 23.4 % (10-50); Mean Corpuscular HGB Conc 32.4 g/dL (31.8-35.4); Mean Corpuscular Hemoglobin 27.7 pg (27.0-31.2); Mean Corpuscular Volume 85.4 fl (81-99); Mean Platelet Volume 8.1 fl (7.4-10.4); Monocytes # 0.5 K/mm3 (0.1-1.0); Monocytes % 5.5 % (1.7-9.3); Neutrophils # 5.5 K/mm3 (1.8-7.8); Platelet Count 398 K/mm3 (142-424); Red Blood Count 4.72 M/mm3 (4.20-5.40); Red Cell Distribution Width 13.9 % (11.5-17.5); White Blood Count 8.6 K/mm3 (4.8-10.8)
[2021-08-13 10:36] LABS: Alanine Aminotransferase 18 U/L (12-78); Albumin Level 4.1 g/dl (3.5-5.0); Albumin/Globulin Ratio 1.4 (1.1-1.8); Alkaline Phosphatase 86 U/L (38-126); Anion Gap 9.9 mEq/L (5-15); Aspartate Amino Transferase 28 U/L (14-36); Bilirubin,Total 0.3 mg/dl (0.2-1.3); Blood Urea Nitrogen 18 mg/dl (7-17); Calcium 9.7 mg/dl (8.4-10.2); Carbon Dioxide 30 mmol/L (22.0-30.0); Chloride 99 mmol/L (98-107); Chol/HDL Ratio 2.7 (1-3.5); Cholesterol 191 mg/dl (140-200); Estimated Glomerular Filt Rate 76 ml/min (>60); GFR (African American) 92 ML/MIN (>60); Glucose 105 mg/dl (74-100); HDL Cholesterol 70 mg/dl (40-60); Potassium 3.9 mmoL/L (3.5-5.1); Sodium 135 mmol/L (136-145); Total Protein,Serum 7.1 g/dl (6.3-8.2); Triglycerides 218 mg/dl (30-150); VLDL Cholesterol 44 mg/dL (0-40)
[2021-08-13 10:47] LABS: Direct LDL Cholesterol 84.32 mg/dL (100-129)
[2021-08-13 10:53] LABS: 25-OH Vitamin D, Total 20.7 ng/mL (30-100)
== END ==
PROVIDERS: PCP Nurse Practitioner Family; Visit Provider Nurse Practitioner Family
DX: I10 Essential (primary) hypertension (principal); M53.9 Dorsopathy, unspecified; E55.9 Vitamin D deficiency, unspecified
CPT/HCPCS: 36415; 80053; 80061; 82306; 85025

== ENCOUNTER → 2022-06-18 12:54 | Outpatient (CLI) | payer MEDICARE, MEDICAID, SELFPAY ==
--- NOTE | 2022-06-18 13:01 | XR_ITS ---
FINAL REPORT CLINICAL HISTORY: wrist pain, no injury FINDINGS: RIGHT WRIST Three views of the right wrist demonstrate no acute fracture or dislocation. There is ulnar negative variance measuring 5 mm. The soft tissues are unremarkable. IMPRESSION: No acute bony abnormality. Reviewed, Interpreted and Dictated by Haroldo Jewell MD Transcribed by Carina Best Authenticated and [facility]
--- NOTE | 2022-06-18 13:01 | XR_ITS ---
FINAL REPORT CLINICAL HISTORY: wrist pain, no injury FINDINGS: LEFT WRIST Three views of the left wrist demonstrate no acute fracture or dislocation. There is ulnar negative variance measuring 5 mm. The soft tissues are unremarkable. IMPRESSION: No acute bony abnormality. Reviewed, Interpreted and Dictated by Haroldo Jewell MD Transcribed by Carina Best Authenticated and . [facility]
== END ==
PROVIDERS: PCP Nurse Practitioner Family; Visit Provider Orthopaedic Surgery
DX: M25.532 Pain in left wrist (principal); M25.531 Pain in right wrist
CPT/HCPCS: 73110

== ENCOUNTER 2022-06-24 09:59 | Emergency (ER) | payer MEDICARE, MEDICAID, SELFPAY ==
[2022-06-24 11:30] VITALS: BP 136/68; PULSE 89; RESP 18; TEMP 36.6; O2SAT 98; BMI 43.4
--- NOTE | 2022-06-24 11:44 | EXP.UTC ---
Discharge Plan Disposition Patient Disposition: Home, Self-Care Condition: Good Prescriptions Prescriptions: New azithromycin [Zithromax Z-Narciso] 250 mg tablet See Rx Instructions .ROUTE .COMPLEX 5 Days Qty: 6 0RF Rx Instructions: For 250 mg dose pack: take 500 mg today (day 1), then 250 mg for 4 days (days 2-5) benzonatate 100 mg capsule 100 mg PO TID PRN (Reason: cough) Qty: 30 0RF methylprednisolone [Medrol (Narciso)] 4 mg tablets,dose pack See Rx Instructions .Route .COMPLEX 6 Days Qty: 21 0RF Rx Instructions: taper pack; No Action diclofenac sodium 50 mg tablet,delayed release (DR/EC) PO hydrochlorothiazide 25 mg tablet PO esomeprazole magnesium 40 mg capsule,delayed release(DR/EC) PO tizanidine 4 mg tablet PO venlafaxine 75 mg capsule,extended release 24hr PO potassium chloride 10 mEq tablet extended release PO solifenacin 10 mg tablet PO fluticasone propionate 50 mcg/actuation spray,suspension INTRANASAL (DME) walker 1 EACH misc 1 each MISCELLANE DIRECTED Qty: 1 0RF Referrals Follow up/Referrals: Renée Escudero APRN [Primary Care Provider] - See instructions Activity Restrictions/Add. Instructions Additional Instructions/Restrictions: Start antibiotic today. Be sure to complete entire prescription even if feeling better Monitor temp. Tylenol every 4 hours as needed and / or ibuprofen every 6 hours as needed ( As long as your primary care physician has told you that it ok to take both. For fever/aches/pains ER if no less than 101 despite Tylenol or Motrin Humidifier/vaporizer or hot steamy shower *Tessalon Perles will not cause drowsiness but use at bedtime to help stop cough so that you may get some rest. *Start steroid today. Helps with inflammation therefore, cough and wheezing. Follow directions on the package. Reviewed side effects. Patient reports taking them before. Follow up IMMEDIATELY for new or worsening of symptoms OR no noticeable improvement over the next 48-72 hours. 911 immediately for any life threatening symptoms such as chest pain or difficulty breathing Clinical Impressions Clinical Impression: Sinusitis, Bronchitis Instructions Patient Instructions: DI for Sinusitis, Sinusitis, Acute Bronchitis Discharge ED Provider: Darling Almodovar [facility] [place] General Stated complaint: no voice, ear throat chest pain headache Mode of Arrival: Ambulatory Source of Information: Patient Limitations: No Limitations Time Seen by Provider: 06/24/22 11:49 Description of Symptoms (Recalled from Triage Doc. by RN): PATIENT C/O LOSS OF VOICE, CHEST CONGESTION, EAR PAIN, SORE THROAT AND COUGH X 3 DAYS HEENT Symptoms (Recalled from RN notes): Yes Resp Symptoms (Recalled from RN notes): Yes Skin Symptoms (Recalled from RN notes): No MS Symptoms (Recalled from RN notes): No Functional Status (Recalled from RN notes): WNL History of Present Illness Provider Complaint: Patient states that she hasnt felt well for about 3 days States that she has been having sinus congestion and pressure, cough, burning in chest when she coughs, sore throat and sinus congestion State that it has continued to get worse over the last few days but this morning she woke up and had loss her voice so she came in Related Data Home Medications Medication Instructions Recorded Confirmed diclofenac sodium 50 mg PO 10/15/19 06/18/22 tablet,delayed release esomeprazole magnesium 40 mg mg PO 10/15/19 06/18/22 capsule,delayed release fluticasone propionate 50 intranasal 10/15/19 06/18/22 mcg/actuation nasal spray,suspension hydrochlorothiazide 25 mg tablet PO 10/15/19 06/18/22 potassium chloride 10 mEq meq PO 10/15/19 06/18/22 tablet,extended release solifenacin 10 mg tablet mg PO 10/15/19 06/18/22 tizanidine 4 mg tablet mg PO 10/15/19 06/18/22 venlafaxine 75 mg cap
[2022-06-24 12:00] VITALS: BP 136/68; PULSE 89; RESP 18; TEMP 36.6; O2SAT 98
== END 2022-06-24 12:05 | disposition home or self-care (01) ==
PROVIDERS: Emergency Provider Nurse Practitioner; PCP Nurse Practitioner Family
DX: J40 Bronchitis, not specified as acute or chronic (principal); J32.9 Chronic sinusitis, unspecified
CPT/HCPCS: 99212; G0463

== ENCOUNTER → 2022-08-16 13:08 | Outpatient (CLI) | payer MEDICARE, MEDICAID, SELFPAY ==
[2022-08-16 13:15] LABS: Microscopic, Urine URINE MICROSCOPIC (MICROSCOPIC)
[2022-08-16 14:21] LABS: Appearance,Urine CLEAR (Clear); Bilirubin,Urine Negative (Negative); Blood, Urine Negative (Negative); Color,Urine YELLOW (Yellow); Glucose,Urine (UA) Negative (Negative); Ketones,Urine Negative (Negative); Leukocyte Esterase,Urine Negative (Negative); Nitrate,Urine Negative (Negative); Protein,Urine Negative (Negative); Urobilinogen,Urine 0.2 EU/dl (0.2)
[2022-08-16 14:27] LABS: Basophils # 0.1 K/mm3 (0-0.2); Basophils % 1.1 % (0.1-2.0); Eosinophils # 0.6 K/mm3 (0.0-0.4); Eosinophils % 6.3 % (0.1-12.0); Hematocrit 39.4 % (37.0-47.0); Hemoglobin 12.9 g/dL (12.2-16.2); Lymphocytes # 2.5 K/mm3 (0.7-4.5); Lymphocytes % 25.4 % (10-50); Mean Corpuscular HGB Conc 32.7 g/dL (31.8-35.4); Mean Corpuscular Hemoglobin 27.1 pg (27.0-31.2); Mean Corpuscular Volume 82.7 fl (81-99); Mean Platelet Volume 8.2 fl (7.4-10.4); Monocytes # 0.8 K/mm3 (0.1-1.0); Monocytes % 7.7 % (1.7-9.3); Neutrophils # 5.8 K/mm3 (1.8-7.8); Neutrophils % 59.5 % (37.0-80.0); Platelet Count 389 K/mm3 (142-424); Red Blood Count 4.77 M/mm3 (4.20-5.40); Red Cell Distribution Width 13.4 % (11.5-17.5); White Blood Count 9.8 K/mm3 (4.8-10.8)
[2022-08-16 14:29] LABS: Squamous Epithelial Cell,Urine Occasional #/hpf (0-5); WBC,Urine Occasional #/hpf (0-3)
[2022-08-16 15:09] LABS: Alanine Aminotransferase 19 U/L (12-78); Albumin Level 4.1 g/dl (3.5-5.0); Albumin/Globulin Ratio 1.3 (1.1-1.8); Alkaline Phosphatase 95 U/L (38-126); Anion Gap 11.9 mEq/L (5-15); Aspartate Amino Transferase 21 U/L (14-36); Bilirubin,Total 0.3 mg/dl (0.2-1.3); Blood Urea Nitrogen 23 mg/dl (7-17); Calcium 9.1 mg/dl (8.4-10.2); Carbon Dioxide 28 mmol/L (22.0-30.0); Chloride 103 mmol/L (98-107); Estimated Glomerular Filt Rate 59 ml/min (>60); GFR (African American) 71 ML/MIN (>60); Globulin 3.2 g/dL (1.3-3.2); Glucose 82 mg/dl (74-100); Potassium 4.9 mmoL/L (3.5-5.1); Sodium 138 mmol/L (136-145); Total Protein,Serum 7.3 g/dl (6.3-8.2)
== END ==
PROVIDERS: PCP Nurse Practitioner Family; Visit Provider Orthopaedic Surgery
DX: Z01.818 Encounter for other preprocedural examination (principal); S82.891A Other fracture of right lower leg, initial encounter for closed fracture
CPT/HCPCS: 36415; 80053; 81001; 85025

== ENCOUNTER → 2022-08-23 10:11 | Outpatient (CLI) | payer MEDICARE, MEDICAID, SELFPAY ==
--- NOTE | 2022-08-23 10:15 | US_ITS ---
FINAL REPORT CLINICAL HISTORY: Palpable area right mid back -- been antibiotics FINDINGS: ULTRASOUND EXTREMITY NONVASCULAR, LIMITED Sonographic images were obtained of the soft tissues of the right mid back at the area of a palpable abnormality. There is a hypoechoic 2.2 x 2.3 x 0.7 cm collection with internal echoes but no convincing internal blood flow. This could represent a small cystic lesion or evolving hematoma/seroma. An abscess cannot be excluded. IMPRESSION: Abnormality at the area of interest could represent a complex cyst, a evolving hematoma/seroma or abscess in the appropriate clinical setting. Reviewed, Interpreted and Dictated by Esther Obrien MD Transcribed by Iveth Lilly Authenticated and . [facility]
== END ==
PROVIDERS: PCP Nurse Practitioner Family; Visit Provider Nurse Practitioner Family
DX: Q79.8 Other congenital malformations of musculoskeletal system (principal)
CPT/HCPCS: 76604

== ENCOUNTER 2022-08-28 06:05 | Day surgery (SDC) | payer MEDICARE, MEDICAID, SELFPAY ==
[2022-08-27 13:54] VITALS: BMI 38.5
[2022-08-28] VITALS (7 sets, daily range): BP systolic 107–131; BP diastolic 41–72; PULSE 76–93; RESP 15–18; TEMP 36.2–43; O2SAT 92–97
[2022-08-28 06:24] LABS: Urine Pregnancy, HCG Qual. Negative (Negative)
--- NOTE | 2022-08-28 07:09 | P.PN_ITS ---
[facility] Disclaimer: The information contained in this section may have been updated after the patient was seen, as this information can be updated by other users. Medical History Allergies Anxiety Arthritis Back pain Bronchitis Cholecystectomy planned COVID Depression Edema Hemorrhoid History of anemia History of COVID-19 History of gastroesophageal reflux (GERD) Hypertension Sleep apnea Surgical History H/O removal of cyst History of History of surgery Previous back surgery Status post endometrial ablation Family History Other Arthritis COPD (chronic obstructive pulmonary disease) Diabetes Heart disease Kidney disease Social History (Updated 08/28/22 @ 06:36 by Xuan Escudero RN) Smoking Status: Former smoker alcohol intake: current substance use type: denies use current occupational status: disabled Travel in the last 8 weeks: None household members: significant other and children housing: house [facility] Anesthesia Checklist Patient Identification Patient Identification: Arm Band and Family Structural Data Admitted From: Home Planned Operative Procedure/s: Carpal Tunnel Release Consent for Planned Operative Procedure(s) Verified: Yes Verified Documents: Surgical Consent NPO Status Verified Time NPO: 00:00 Additional verifications Patient : No Anesthesia Reactions: No Hx Blood Transfusions: No Blood Transfusion Reaction: No Cephalosporin Allergy: No Previous Colonoscopy: No Airway Assessment C-Spine Mobility Assessed: Yes TMJ Mobility Assessed: Yes Dentition: Partials Neurological Assessment Level of Consciousness: Awake, Alert, Appropriate and Follows Commands Hx Seizures: No Numbness or tingling in extremities: No Anesthesia Plan Anesthesia Risk discussed: Yes ASA Class: II Anesthesia Type: MAC Preoperative Comments Pre-Operative Comments: Back surgery X3. Numb Right leg from Hip to toe. Tingling in both hands. Urinary incontinence, Occasional social drinking.
--- NOTE | 2022-08-28 08:18 | EXP.OP.NOTE ---
Date of procedure: 08/28/22 Pre-op Diagnosis:: Right carpal tunnel syndrome Post-op Diagnosis:: Same Procedure performed:: Right endoscopic carpal tunnel release Surgeon:: Hamlet Fajardo DO PATIENT SUPPORT ASSOCIATE:: Kj Chinchilla Anesthesia: MAC and local Estimated blood loss (mL): 0 Operative findings:: See dictation Operative note:: Patient was identified preoperatively. Right wrist marked yes my initials. Taken the operative suite placed upon operating bed. Right upper extremity prepped draped normal sterile fashion. Once prepped and draped final operative timeout performed to identify proper patient procedure and extremity. Everyone involved in case agreed. No counter indication beginning. Did receive preoperative antibiotics. Marking pen was used to make plan incision over the volar wrist crease. Esmarch was used to exsanguinate extremity pneumatic tourniquet inflated to 250 mmHg. Skin knife was used to incise through skin careful dissection was taken down to identify the most proximal aspect of the transverse carpal ligament. Once identified the dilator was placed in the carpal tunnel followed by the sled for the right sided endoscopic carpal tunnel release. Camera is then placed in the carpal tunnel transverse carpal ligament clearly seen superiorly in the camera. Hook was used to identify the most distal aspect of transverse carpal ligament and then rasp was used to remove the soft tissue and the undersurface of the transverse carpal ligament. Then using a curved knife complete resection of the transverse carpal ligament was performed and visualized on the camera. Copious irrigation wound performed. Skin closed with nylon stitch sterile hand dressing placed patient waken from anesthesia taken recovery in stable condition. Tourniquet time (min): 13 Condition: stable Disposition: PACU Complications:: None apparent
== END 2022-08-28 09:15 | disposition home or self-care (01) ==
PROVIDERS: PCP Nurse Practitioner Family; Visit Provider Orthopaedic Surgery
PROC: (CPT 64721; principal; 2022-08-28 07:30)
DX: G56.01 Carpal tunnel syndrome, right upper limb (principal)
CPT/HCPCS: 64721; 81025; 96374; J2704

== ENCOUNTER → 2022-09-24 12:52 | Outpatient (CLI) | payer MEDICARE, MEDICAID, SELFPAY ==
--- NOTE | 2022-09-24 12:52 | MM_ITS ---
PROCEDURE INFORMATION: Exam: US Left Breast, Complete, Abscess Evaluation MG Bilateral Diagnostic Breast Tomosynthesis Exam date and time: 09/24/2022 12:59 PM Age: 52 years old Clinical indication: Palpable abnormality in the left breast TECHNIQUE: Imaging protocol: Left Ultrasound of the breast with image documentation. All quadrants and retroareolar regions evaluated. Exam focused on the search and evaluation for abscess. Exam is an emergent request and a non-BIRADS study. Bilateral Diagnostic tomosynthesis and 2D mammography including computer-aided detection (CAD) when performed. Unilateral or bilateral exam. COMPARISON: 1. MG MM DIG MAMM DX UNILAT LT CAD 12/27/2020 1:40 PM 2. MG MM DIG SCREENING MAMM BI W/CAD 11/20/2020 1:03 PM FINDINGS: MAMMOGRAPHY: The breast tissue is almost entirely fatty. There is no stellate mass, architectural distortion or suspicious microcalcifications in either breast to suggest malignancy. No suspicious masses. No skin thickening or axillary adenopathy. ULTRASOUND: Sonographic images of the left breast including the retroareolar region, all 4 quadrants and the axilla do not demonstrate any solid masses. Palpable abnormality in the left 7 o'clock axis 6 cm from the nipple corresponds to a hypoechoic cutaneous mass measuring 0.8 x 0.2 cm, most consistent with a sebaceous cyst. Incidental left 12 o'clock axis 0.4 cm cyst 3 cm from the nipple corresponding to the stable mass on mammography. No architectural distortion or acoustical shadowing. No skin thickening or axillary adenopathy. IMPRESSION: No mammographic or sonographic evidence of malignancy. Palpable abnormality in the left breast corresponds to a cutaneous lesion, most consistent with a sebaceous cysts.Annual bilateral mammographic screening is recommended unless otherwise clinically indicated. ASSESSMENT: BI-RADS Category 2: Benign
== END ==
PROVIDERS: PCP Nurse Practitioner Family; Visit Provider Surgery
DX: R92.8 Other abnormal and inconclusive findings on diagnostic imaging of breast (principal); N64.59 Other signs and symptoms in breast
CPT/HCPCS: 76641; 77062; 77066; G0279

== ENCOUNTER → 2022-11-11 14:38 | Outpatient (CLI) | payer MEDICARE, MEDICAID, SELFPAY ==
--- NOTE | 2022-11-11 14:52 | ECG_ITS ---
APPROVED REPORT Exam: Resting ECG HR:77 bpm ECG Measurements Heart Rate 77 AXES AL 146 P 50 QRSd 97 QRS 107 QT 362 T 24 QTc 394 Conclusion SINUS RHYTHM RIGHT AXIS DEVIATION [QRS AXIS > 100] LOW QRS VOLTAGE IN PRECORDIAL LEADS [QRS DEFLECTION < 1.0 mV IN CHEST LEADS] ABNORMAL ECG UNCONFIRMED REPORT Electronically signed by : Burton Rivera MD 11/11/2022 20:20:01
--- NOTE | 2022-11-11 15:05 | XR_ITS ---
FINAL REPORT CLINICAL HISTORY: pre op, HIGH BLOOD PRESSURE COMPARISON: 07/01/2021 FINDINGS: Two views of the chest were obtained. The heart size and pulmonary vascularity are within normal limits. The mediastinum is normal. No acute pulmonary abnormality is identified. There is no pneumothorax. The bony thorax is intact. IMPRESSION: No active cardiopulmonary disease. Reviewed, Interpreted and Dictated by Delgado Mackey III, MD Transcribed by Carina Best Authenticated and [facility]
[2022-11-11 15:40] LABS: Basophils # 0.1 K/mm3 (0-0.2); Basophils % 0.8 % (0.1-2.0); Eosinophils # 0.3 K/mm3 (0.0-0.4); Eosinophils % 3.2 % (0.1-12.0); Hematocrit 39.2 % (37.0-47.0); Hemoglobin 12.8 g/dL (12.2-16.2); Lymphocytes # 2.3 K/mm3 (0.7-4.5); Lymphocytes % 24.2 % (10-50); Mean Corpuscular HGB Conc 32.7 g/dL (31.8-35.4); Mean Corpuscular Hemoglobin 26.9 pg (27.0-31.2); Mean Corpuscular Volume 82.3 fl (81-99); Monocytes # 0.5 K/mm3 (0.1-1.0); Monocytes % 5.7 % (1.7-9.3); Neutrophils # 6.1 K/mm3 (1.8-7.8); Neutrophils % 66.1 % (37.0-80.0); Platelet Count 314 K/mm3 (142-424); Red Blood Count 4.76 M/mm3 (4.20-5.40); Red Cell Distribution Width 13.3 % (11.5-17.5); White Blood Count 9.3 K/mm3 (4.8-10.8)
[2022-11-11 17:03] LABS: Chloride 102 mmol/L (98-107); Potassium 4.5 mmoL/L (3.5-5.1); Sodium 138 mmol/L (136-145)
[2022-11-11 17:06] LABS: Anion Gap 11.5 mEq/L (5-15); Blood Urea Nitrogen 19 mg/dl (7-17); Calcium 9.2 mg/dl (8.4-10.2); Carbon Dioxide 29 mmol/L (22.0-30.0); Estimated Glomerular Filt Rate 66 ml/min (>60); GFR (African American) 80 ML/MIN (>60); Glucose 95 mg/dl (74-100)
== END ==
PROVIDERS: PCP Nurse Practitioner Family; Visit Provider Orthopaedic Surgery
DX: G56.02 Carpal tunnel syndrome, left upper limb (principal); Z01.810 Encounter for preprocedural cardiovascular examination
CPT/HCPCS: 36415; 71046; 80048; 85025; 93005

== ENCOUNTER 2022-11-13 09:27 | Day surgery (SDC) | payer MEDICARE, MEDICAID, SELFPAY ==
[2022-11-11 11:20] VITALS: BMI 40.3
[2022-11-13 11:06] VITALS: BP 142/77; PULSE 81; RESP 18; TEMP 36.2; O2SAT 97
--- NOTE | 2022-11-13 11:25 | P.PN_ITS ---
[facility] Disclaimer: The information contained in this section may have been updated after the patient was seen, as this information can be updated by other users. Medical History Allergies Anxiety Arthritis Back pain Bronchitis Cholecystectomy planned COVID Depression Edema Hemorrhoid History of anemia History of COVID-19 History of gastroesophageal reflux (GERD) Hypertension Sleep apnea Surgical History H/O removal of cyst History of History of carpal tunnel release History of colonoscopy History of surgery Previous back surgery Status post endometrial ablation Family History Other Arthritis COPD (chronic obstructive pulmonary disease) Diabetes Heart disease Kidney disease Social History Smoking Status: Former smoker alcohol intake: current substance use type: denies use current occupational status: disabled Travel in the last 8 weeks: None household members: significant other and children housing: house lives independently: No education level: high school service: No senior living: No caffeine: Yes special june needs: No agree to transfusion: No do you feel safe at home: Yes victim of physical abuse: No victim of emotional abuse: No victim of sexual abuse: No would you like helpful sources: No [facility] Anesthesia Checklist Patient Identification Patient Identification: Arm Band and Verbal (Name & ) Structural Data Admitted From: Home Planned Operative Procedure/s: carpal tunnel Consent for Planned Operative Procedure(s) Verified: Yes NPO Status Verified Time NPO: 00:00 Additional verifications Anesthesia Reactions: No Hx Blood Transfusions: No Blood Transfusion Reaction: No Airway Assessment C-Spine Mobility Assessed: Yes TMJ Mobility Assessed: No Dentition: Poor Dentition Neurological Assessment Level of Consciousness: Awake Hx Seizures: No Numbness or tingling in extremities: No Anesthesia Plan Anesthesia Plan: Verified ASA Class: III Anesthesia Type: MAC
--- NOTE | 2022-11-13 12:20 | EXP.OP.NOTE ---
Date of procedure: 11/13/22 Pre-op Diagnosis:: Left carpal tunnel syndrome Post-op Diagnosis:: Same Procedure performed:: Left endoscopic carpal tunnel release Surgeon:: Hamlet Fajardo DO IRRIGATION INSTALLATION SPECIALIST:: Frantz Medina Anesthesia: MAC and local Estimated blood loss (mL): 0 Operative findings:: See dictation Operative note:: Patient is identified preoperatively. Left wrist marked with yes my initials. Transferred operative suite placed supine on the operating table with a hand table. Left upper extremity prepped and draped in normal sterile fashion. Once prepped and draped final operative timeout performed to identify proper patient procedure and extremity. Everyone involved in the case agreed. No counter indications to beginning. Did receive preoperative antibiotics. Local anesthesia was infiltrated into the planned incision site and over the carpal tunnel with lidocaine 1% with epinephrine. Esmarch was used to exsanguinate extremity pneumatic tourniquet inflated to 250 mmHg. Skin F was used incise the skin careful dissection was taken down to identify the most proximal aspect of the transverse carpal ligament. Once identified the dilator from the endoscopic carpal tunnel set was placed within the carpal tunnel followed by the sled. This allowed us to place the camera within the carpal tunnel and clearly see the transverse carpal ligament superiorly. A rasp was used to remove the soft tissue from the undersurface. Then the curved hook knife was used to complete transection of the transverse carpal ligament. This was clearly visualized. Copious irrigation wound performed skin closed with nylon stitches. Sterile hand dressing placed. Patient waken sedation taken recovery in stable condition. Tourniquet time (min): 20 Condition: stable Disposition: PACU Complications:: None apparent
[2022-11-13 12:22] VITALS: BP 120/61; PULSE 84; RESP 17; TEMP 36.4; O2SAT 95
[2022-11-13 12:32] VITALS: BP 123/60; PULSE 83; RESP 18; O2SAT 97
[2022-11-13 12:42] VITALS: BP 124/64; PULSE 80; RESP 18; O2SAT 97
[2022-11-13 12:52] VITALS: BP 149/90; PULSE 84; RESP 17; O2SAT 96
[2022-11-13 14:51] VITALS: TEMP 43
== END 2022-11-13 12:45 | disposition home or self-care (01) ==
PROVIDERS: PCP Nurse Practitioner Family; Visit Provider Orthopaedic Surgery
PROC: (CPT 64721; principal; 2022-11-13 11:45)
DX: G56.02 Carpal tunnel syndrome, left upper limb (principal)
CPT/HCPCS: 64721; 96374; J2704

== ENCOUNTER → 2023-01-21 09:49 | Outpatient (CLI) | payer MEDICARE, MEDICAID, SELFPAY ==
--- NOTE | 2023-01-21 09:54 | XR_ITS ---
FINAL REPORT CLINICAL HISTORY: Rt knee pain COMPARISON: 09/23/2019 FINDINGS: Right knee Three views were obtained. There is no acute fracture or dislocation. There is mild to moderate medial compartment joint space narrowing with osteophytes. There are also small osteophytes along the surface of the patella. No soft tissue abnormality is identified. IMPRESSION: Mild to moderate changes of osteoarthritis. Reviewed, Interpreted and Dictated by Haroldo Jewell MD Transcribed by Odalys Sow Authenticated and [facility]
--- NOTE | 2023-01-21 09:54 | XR_ITS ---
FINAL REPORT CLINICAL HISTORY: lt knee pain COMPARISON: 10/24/2020 FINDINGS: Left knee Three views were obtained. There is no acute fracture or dislocation. There is moderate medial compartment joint space narrowing. There is moderate osteophyte formation along the medial joint margin. There are small osteophytes along the undersurface of the patella. No soft tissue abnormality is identified. IMPRESSION: Moderate changes of osteoarthritis. Reviewed, Interpreted and Dictated by Haroldo Jewell MD Transcribed by Odalys Sow Authenticated and [facility]
== END ==
PROVIDERS: PCP Nurse Practitioner Family; Visit Provider Orthopaedic Surgery
DX: M25.562 Pain in left knee (principal); M25.561 Pain in right knee
CPT/HCPCS: 73562

== ENCOUNTER → 2023-04-01 11:35 | Outpatient (CLI) | payer MEDICARE, MEDICAID, SELFPAY ==
[2023-04-01 16:12] LABS: Amphetamine/Metha Screen,Urine Negative ng/ml (<1000); Barbiturates Screen,Urine Negative ng/ml (<200); Benzodiazepines Screen,Urine Negative ng/ml (<200); Cannabinoid Screen,Urine Negative ng/ml (<50); Cocaine Screen,Urine Negative ng/ml (<300); Methadone Screen,Urine Negative ng/ml (<300); Opiate Screen,Urine Negative ng/ml (<300); Phencyclidine Screen,Urine Negative ng/ml (<25)
[2023-04-01 16:37] LABS: Alanine Aminotransferase 15 U/L (12-78); Albumin Level 3.7 g/dl (3.5-5.0); Albumin/Globulin Ratio 1.1 (1.1-1.8); Alkaline Phosphatase 88 U/L (38-126); Anion Gap 12.4 mEq/L (5-15); Aspartate Amino Transferase 17 U/L (14-36); Bilirubin,Total 0.2 mg/dl (0.2-1.3); Blood Urea Nitrogen 17 mg/dl (7-17); Calcium 9.2 mg/dl (8.4-10.2); Carbon Dioxide 31 mmol/L (22.0-30.0); Chloride 99 mmol/L (98-107); Chol/HDL Ratio 2.8 (1-3.5); Cholesterol 171 mg/dl (140-200); Estimated Glomerular Filt Rate 66 ml/min (>60); GFR (African American) 80 ML/MIN (>60); Globulin 3.4 g/dL (1.3-3.2); Glucose 91 mg/dl (74-100); HDL Cholesterol 61 mg/dl (40-60); Potassium 4.4 mmoL/L (3.5-5.1); Sodium 138 mmol/L (136-145); Total Protein,Serum 7.1 g/dl (6.3-8.2); Triglycerides 274 mg/dl (30-150); VLDL Cholesterol 55 mg/dL (0-40)
[2023-04-01 16:48] LABS: Basophils # 0.1 K/mm3 (0-0.2); Basophils % 0.8 % (0.1-2.0); Direct LDL Cholesterol 61.12 mg/dL (100-129); Eosinophils # 0.2 K/mm3 (0.0-0.4); Eosinophils % 2.6 % (0.1-12.0); Hematocrit 40.6 % (37.0-47.0); Hemoglobin 13.3 g/dL (12.2-16.2); Lymphocytes # 1.7 K/mm3 (0.7-4.5); Mean Corpuscular HGB Conc 32.8 g/dL (31.8-35.4); Mean Corpuscular Volume 85.4 fl (81-99); Mean Platelet Volume 9.3 fl (7.4-10.4); Monocytes # 0.5 K/mm3 (0.1-1.0); Monocytes % 6.2 % (1.7-9.3); Neutrophils % 67.5 % (37.0-80.0); Platelet Count 374 K/mm3 (142-424); Red Blood Count 4.76 M/mm3 (4.20-5.40); Red Cell Distribution Width 13.1 % (11.5-17.5); White Blood Count 7.4 K/mm3 (4.8-10.8)
== END ==
PROVIDERS: PCP Nurse Practitioner Family; Visit Provider Nurse Practitioner Family
DX: I10 Essential (primary) hypertension (principal); G89.29 Other chronic pain; E55.9 Vitamin D deficiency, unspecified; M19.90 Unspecified osteoarthritis, unspecified site; E66.9 Obesity, unspecified; Z68.41 Body mass index [BMI] 40.0-44.9, adult
CPT/HCPCS: 36415; 80053; 80061; 80305; 82306; 85025

== ENCOUNTER → 2023-07-09 12:40 | Outpatient (CLI) | payer MEDICARE, MEDICAID, SELFPAY ==
--- NOTE | 2023-07-09 12:46 | US_ITS ---
PROCEDURE: US TRANSVAGINAL CLINICAL INDICATION: POSTMENOPAUSAL COMPARISON: No exams were available for comparison FINDINGS: Transvaginal and transabdominal sonographic images of the pelvis were obtained. UTERUS: 7.8cm x 4.8cmx 4.3cm midline with a combined endometrial thickness of 14.7mm. There appears to be a collection blood clot and fluid in the cervix. It measures 1.9 cm x 2.0 cm x 1.9 cm There are several small nabothian cysts. LEFT OVARY: Not visualized RIGHT OVARY: 3.4cmx 3.0cmx2.0cm with a volume of 10.8ml. There is a follicle measuring 2.4 cm x 2.1 cm x 2.6 cm. There is no fluid in the cul-de-sac. IMPRESSION: 1. Uterus in the midline with a collection of blood and clot within the cervix that measures 2.0 cm. 2. The endometrium is thickened at 14.7 mm. 3. There is a small follicle on the right ovary measuring 2.6 cm. Left ovary is not visualized. 4. Suggest gynecologic consult with endometrial sampling. Dictated by: Reyes Portillo MD 07/09/2023 17:38 Reyes Portillo MD in OV 07/09/2023 17:38
== END ==
PROVIDERS: PCP Nurse Practitioner Family; Visit Provider Nurse Practitioner Family
DX: N95.0 Postmenopausal bleeding (principal)
CPT/HCPCS: 76830

== ENCOUNTER 2023-12-04 15:05 | Outpatient (CLI) | payer MEDICARE, MEDICAID, SELFPAY ==
[2023-12-04 15:55] LABS: Basophils # 0.1 K/mm3 (0-0.2); Basophils % 1.1 % (0.1-2.0); Eosinophils # 0.3 K/mm3 (0.0-0.4); Eosinophils % 3.5 % (0.1-12.0); Hematocrit 41.4 % (37.0-47.0); Hemoglobin 13.3 g/dL (12.2-16.2); Lymphocytes # 2.5 K/mm3 (0.7-4.5); Lymphocytes % 35.5 % (10-50); Mean Corpuscular HGB Conc 32.2 g/dL (31.8-35.4); Mean Corpuscular Hemoglobin 27.5 pg (27.0-31.2); Mean Corpuscular Volume 85.2 fl (81-99); Mean Platelet Volume 8.3 fl (7.4-10.4); Monocytes # 0.5 K/mm3 (0.1-1.0); Monocytes % 6.7 % (1.7-9.3); Neutrophils # 3.8 K/mm3 (1.8-7.8); Neutrophils % 53.2 % (37.0-80.0); Platelet Count 338 K/mm3 (142-424); Red Blood Count 4.85 M/mm3 (4.20-5.40); White Blood Count 7.1 K/mm3 (4.8-10.8)
[2023-12-04 16:31] LABS: Alanine Aminotransferase 17 U/L (12-78); Albumin Level 4.2 g/dl (3.5-5.0); Albumin/Globulin Ratio 1.4 (1.1-1.8); Alkaline Phosphatase 87 U/L (38-126); Anion Gap 9.2 mEq/L (5-15); Aspartate Amino Transferase 21 U/L (14-36); Bilirubin,Total 0.5 mg/dl (0.2-1.3); Blood Urea Nitrogen 18 mg/dl (7-17); Calcium 9.7 mg/dl (8.4-10.2); Carbon Dioxide 30 mmol/L (22.0-30.0); Chloride 100 mmol/L (98-107); Estimated Glomerular Filt Rate 52 ml/min (>60); GFR (African American) 63 ML/MIN (>60); Globulin 2.9 g/dL (1.3-3.2); Glucose 87 mg/dl (74-100); Potassium 4.2 mmoL/L (3.5-5.1); Sodium 135 mmol/L (136-145); Total Protein,Serum 7.1 g/dl (6.3-8.2)
[2023-12-04 16:49] LABS: HCG,Quantitative < 2 mIU/ml (0-5.42)
== END 2023-12-04 23:59 | disposition home or self-care (01) ==
LOC: LAB 15:07
PROVIDERS: PCP Nurse Practitioner Family; Visit Provider Obstetrics & Gynecology
DX: N93.9 Abnormal uterine and vaginal bleeding, unspecified (principal); R10.2 Pelvic and perineal pain
CPT/HCPCS: 36415; 80053; 84702; 85025

== ENCOUNTER 2023-12-09 08:08 | Inpatient (IN) | payer MEDICARE, MEDICAID, SELFPAY ==
[2023-12-08 09:49] VITALS: BMI 40.3
[2023-12-09] VITALS (22 sets, daily range): BP systolic 90–136; BP diastolic 43–73; PULSE 82–113; RESP 16–19; TEMP 36.3–37.2; O2SAT 92–98; BMI 40.3
[2023-12-09] MEDS: LACTATED RINGERS 1000ML 1,000 ML 25 ML IV (06:45)
[2023-12-09] MEDS: GABAPENTIN 600MG TABLET 600 MG PO (06:45)
[2023-12-09] MEDS: CELECOXIB 100MG CAPSULE 400 MG PO (06:46)
[2023-12-09] MEDS: ACETAMINOPHEN 500MG TAB 1000 MG PO ×4 (06:46→23:52)
--- NOTE | 2023-12-09 07:08 | P.PNANES_ITS ---
[facility] Disclaimer: The information contained in this section may have been updated after the patient was seen, as this information can be updated by other users. Medical History Abnormal uterine bleeding Depression Anxiety Back pain Arthritis Cholecystectomy planned Sleep apnea History of gastroesophageal reflux (GERD) Hemorrhoid Allergies Hypertension Edema History of anemia Surgical History History of colonoscopy History of carpal tunnel release Status post endometrial ablation H/O removal of cyst History of surgery History of Previous back surgery Family History Other Arthritis COPD (chronic obstructive pulmonary disease) Diabetes Heart disease Kidney disease Social History Smoking Status: Former smoker alcohol intake: current alcohol intake frequency: holidays/special occasions only substance use type: denies use current occupational status: disabled Travel in the last 8 weeks: None household members: significant other and children housing: house lives independently: No education level: high school service: No jail: No caffeine: Yes special june needs: No agree to transfusion: No do you feel safe at home: Yes victim of physical abuse: No victim of emotional abuse: No victim of sexual abuse: No would you like helpful sources: No [facility] Anesthesia Checklist Patient Identification Patient Identification: Arm Band and Verbal (Name & ) Structural Data Admitted From: Home Planned Operative Procedure/s: [facility] Consent for Planned Operative Procedure(s) Verified: Yes NPO Status Verified Time NPO: 00:00 Chart Verification Results Verified: CBC, BMP and HCG Additional verifications Anesthesia Reactions: No Hx Blood Transfusions: No Blood Transfusion Reaction: No Airway Assessment Mallampati Score:: Class II C-Spine Mobility Assessed: Yes TMJ Mobility Assessed: Yes Dentition: Dentures-poor fitting (Upper dentures removed) Neurological Assessment Level of Consciousness: Awake Hx Seizures: No Numbness or tingling in extremities: No Anesthesia Plan Anesthesia Risk discussed: Yes Anesthesia Plan: Verified ASA Class: III Anesthesia Type: General w/block
--- NOTE | 2023-12-09 07:24 | EXP.HP ---
History of Present Illness *Admission Date: 12/09/23 *Reason for visit:: Scheduled hysterectomy *History of present illness: Ms Filomena Faith is a 53 yo who presents to [facility] for scheduled surgery. She complains of abnormal uterine bleeding s/p endometrial ablation. She thinks endometrial ablation was performed >/= 6 years ago. She stopped bleeding after the ablation. She first started having irregular bleeding summer 2022. Bleeding occurred again in May 2023. She has cramping with the bleeding. She admits light bleeding can also occur when she picks up her grandkids. She states she had hot flashes and night sweats in the past but nothing in a while. She has history of x 2, cholecystectomy and lysis of adhesions by Dr. Rodriguez. She states Dr. Rodriguez told her she had a lot of scar tissue in her abdomen. Pelvic ultrasound 07/09/23 demonstrated uterus in the midline with a collection of blood and clot within the cervix that measures 2.0 cm. The endometrium is thickened at 14.7 mm. There is a small follicle on the right ovary measuring 2.6 cm. Left ovary is not visualized. [facility] Disclaimer: The information contained in this section may have been updated after the patient was seen, as this information can be updated by other users. Medical History (Updated 12/09/23 @ 07:28 by Eleni Bland DO) Morbid obesity with BMI of 40.0-44.9, adult Abnormal uterine bleeding Depression Anxiety Back pain Arthritis Cholecystectomy planned Sleep apnea History of gastroesophageal reflux (GERD) Hemorrhoid Allergies Hypertension Edema History of anemia Surgical History History of colonoscopy History of carpal tunnel release Status post endometrial ablation H/O removal of cyst History of surgery History of Previous back surgery Family History Other Arthritis COPD (chronic obstructive pulmonary disease) Diabetes Heart disease Kidney disease Social History Smoking Status: Former smoker alcohol intake: current alcohol intake frequency: holidays/special occasions only substance use type: denies use current occupational status: disabled Travel in the last 8 weeks: None household members: significant other and children housing: house lives independently: No education level: high school service: No shelter: No caffeine: Yes special june needs: No agree to transfusion: No do you feel safe at home: Yes victim of physical abuse: No victim of emotional abuse: No victim of sexual abuse: No would you like helpful sources: No Review of Systems Review of Systems Review of systems:: pertinent systems reviewed and negative unless documented below *Genitourinary Genitourinary: Reports abnormal vaginal bleeding Meds Home Medications and Allergies Home Medications Medication Instructions Recorded Confirmed Type diclofenac sodium 50 mg 50 mg PO TID . 10/15/19 12/09/23 History tablet,delayed release esomeprazole magnesium 40 mg 40 mg PO DAILY Reflux/Acid reflux 10/15/19 12/09/23 History capsule,delayed release potassium chloride 10 mEq 10 meq PO DAILY Supplement 10/15/19 12/09/23 History tablet,extended release solifenacin 10 mg tablet 10 mg PO DAILY BLADDER 10/15/19 12/09/23 History tizanidine 4 mg tablet 4 mg PO DAILY . 10/15/19 12/09/23 History venlafaxine 75 mg capsule,extended 75 mg PO DAILY Depression 10/15/19 12/09/23 History release 24 hr lisinopril 10 1 tab PO DAILY BP 08/27/22 12/09/23 History mg-hydrochlorothiazide 12.5 mg tablet tramadol 50 mg tablet 50 mg PO TID . 08/27/22 12/08/23 History lfjtgjvzook-[id number]-qqd C-Mn 500 2 cap PO DAILY Supplement 08/28/22 12/09/23 History mg-400 mg capsule (Glucosamine Chondroitin Maximum Strength) doxycycline hyclate 50 mg capsule 50 mg PO BID 10 days #20 caps 01/07/23 12/09/23 Rx fluticasone propionate 50 1 spray intranasal DAILY PRN 12/04/23 12/09/23 History mcg/actuation nasal ALLERGIES spray,suspension (Flonase Allergy Relief) New Prescriptions to Start Prescriptions: Allergies Allergy/AdvReac Type Severity Reaction Status Date / Time chlorhexidine Allergy Rash Verified 12/09/23 07:16 [From ChloraPrep Clear] isopropyl alcohol Allergy Rash Verified 12/09/23 07:16 [From ChloraPrep Clear] Latex, Natural Rubber Allergy Verified 12/09/23 06:40 Exam Data for Last 24 hours Vital signs and Labs for Last 24 Hours: Temp Pulse Resp BP Pulse Ox O2 Del Method 97.3 F L 84 18 136/67 97 Room Air 12/09/23 06:21 12/09/23 06:21 12/09/23 06:21 12/09/23 06:21 12/09/23 06:21 12/09/23 06:21 I & O for Last 24 hours: Intake & Output 12/06/23 12/07/23 12/08/23 12/09/23 23:59 23:59 23:59 23:59 Weight 250 lb 250 lb Constitutional Constitutional: no acute distress and cooperative *Routine HEENT Exam Head: Present normocephalic and atraumatic Eye: Absent conjunctivae pink ENT: Present mucous membranes moist *Routine Neck Exam Neck: Present full ROM *Routine Respiratory Exam Respiratory: Present CTA bilaterally and normal respiratory effort *Routine Cardiovascular Exam Cardiovascular: Present RRR *Routine Abdominal Exam Abdominal: Present soft and normoactive bowel sounds; Absent tenderness or distended *Routine Rectal Exam Rectal:: deferred *Routine Genitalia Exam Genitalia:: normal female *Routine Extremities Exam Extremities: Present full ROM; Absent edema or calf tenderness *Routine Neurological Exam Neurological: Present alert, moving all extremities and normal speech Routine Psychiatric Exam Psychiatric: Present normal affect and cooperative Assessment and Plan *Assessment and plan (1) Abnormal uterine bleeding: Status: Acute Category: Medical Code(s): N93.9 - Abnormal uterine and vaginal bleeding, unspecified (2) Status post endometrial ablation: Status: Acute Category: Surgical Code(s): Z98.890 - Other specified postprocedural states (3) History of surgery: Problem Comment: SCAR TISSUE REMOVED Status: Acute Category: Surgical Code(s): Z98.890 - Other specified postprocedural states (4) Morbid obesity with BMI of 40.0-44.9, adult: Status: Acute Category: Medical Code(s): E66.01 - Morbid (severe) obesity due to excess calories; Z68.41 - Body mass index [BMI] 40.0-44.9, adult Plan Admit to [facility] for scheduled procedure Reviewed MANDY, BSO. Reviewed surgery in detail. Reviewed risks, benefits, alternatives, expectations and possible complications of surgery. Risks include but are not limited to bleeding; infection; damage to adjacent structures (possibly requiring further intervention and/or longer hospital stay); VTE; risks with anesthesia; and risk of . All questions addressed and answered. Patient voiced understanding of risks and possible complications. Patient desires to proceed with surgery. Consent form signed. Will proceed with expectant management in regards to HRT Proceed with MANDY, BSO
[2023-12-09] MEDS: CEFAZOLIN SODIUM 2 GM in 0.9 % SODIUM CHLORIDE 100 ML IV (07:35)
[2023-12-09] MEDS: 0.9 % SODIUM CHLORIDE 1000ML 1,000 ML 25 ML IV (08:45)
[2023-12-09] MEDS: METHYLENE BLUE 0.5% 10ML AMPULE 50 MG IV (08:45)
--- NOTE | 2023-12-09 09:08 | SUR.OPER ---
family updated of patient current status at this time, cystoscopy added to the consent, family signed and agreed katrina mendoza signed consent as well
--- NOTE | 2023-12-09 10:01 | P.OP_ITS ---
Date of procedure: 12/09/23 Pre-op Diagnosis:: 1. Abnormal uterine bleeding 2. S/p endometrial ablation 3. History of lysis of adhesions of the abdomen and pelvis Post-op Diagnosis:: 1. Abnormal uterine bleeding 2. S/p endometrial ablation 3. History of lysis of adhesions of the abdomen and pelvis 4. Incidental cystotomy 5. Intact bladder s/p cystotomy repair Procedure performed:: 1. Total Abdominal hysterectomy, bilateral salpingo oophorectomy 2. Repair of incidental cystotomy 3. Cystoscopy Surgeon:: Eleni Bland DO [employer] Technician(s):: Reyes Portillo MD PIE BAKERY LABORER:: Kj Chinchilla Anesthesia: GETA Estimated blood loss (mL): 200 Clinical Note:: Ms Filomena Faith is a 53 yo who presents to [facility] for scheduled surgery. She complains of abnormal uterine bleeding s/p endometrial ablation. She thinks endometrial ablation was performed >/= 6 years ago. She stopped bleeding after the ablation. She first started having irregular bleeding summer 2022. Bleeding occurred again in May 2023. She has cramping with the bleeding. She admits light bleeding can also occur when she picks up her grandkids. She states she had hot flashes and night sweats in the past but nothing in a while. She has history of x 2, cholecystectomy and lysis of adhesions by Dr. Rodriguez. She states Dr. Rodriguez told her she had a lot of scar tissue in her abdomen. Pelvic ultrasound 07/09/23 demonstrated uterus in the midline with a collection of blood and clot within the cervix that measures 2.0 cm. The endometrium is thickened at 14.7 mm. There is a small follicle on the right ovary measuring 2.6 cm. Left ovary is not visualized. Operative findings:: 1. Uterus normal size and shape, freely moveable. Grossly normal appearing bilateral fallopian tubes and ovaries 2. Bladder densely adhered to lower uterine segment 3. Incidental cystotomy noted while trying to carefully remove bladder from uterus 4. Good repair of cystotomy both from evaluation after repair with back filling the bladder and cystoscopy Operative note:: Discussed risks, benefits, alternatives, expectations and possible complications of surgery. All questions addressed and answered. Patient wished to proceed with surgery. Patient was wheeled back to the operating room and placed under general anesthesia without difficulty. The patient received 2 grams of Ancef preoperatively. SCDs in place. Mar catheter was inserted and draining clear urine prior to the start of the procedure. She was placed in the supine position. She was prepped and draped in normal sterile fashion. Attention was then turned to the abdomen. A Pfannenstiel skin incision was made 2 cm above pubic symphysis. This was carried through to underlying layer of fascia. Fascia was incised in midline, extended laterally with Bazzi scissors. Superior aspect of fascial incision was grasped with two Lee clamps, elevated up, and rectus muscle dissected off bluntly and sharply with Bazzi scissors. Inferio aspect of fascial incision was grasped with two Lee clamps, elevated up, and rectus muscle dissected off bluntly and sharply with Bazzi scissors.The retcus muscle was then in the midline and the peritoneum was entered bluntly with a digit. Peritoneal incision was then extended superiorly and inferiorly with good visualization of the bladder. O'Christopher O'hillman retractor was placed in the abdominal incision. Bowel was packed cephalad with warm moist laparotomy sponges. Bilateral round ligaments were grasped with Shaylee clamps. Uterus was deviated to the left, right round ligament was placed on stretch and incised between two clamps. The distal stump of the round ligament was suture ligated with 0 Vicryl suture. The proximal stump was held with a Lee clamp. The leaves of the broad ligament were opened both anteriorly and posteriorly. The uterus was retracted cephalad. The anterior leaf of the broad ligament was opened down to the vesicouterine fold. Same procedure was carried out on the contralateral side. The uterus was retracted toward the pubic symphysis and deviated to right side. A finger was inserted through the peritoneum of the posterior leaf of the broad ligament under the suspensory ligament of the ovary and fallopian tube. The IP ligament was doubly clamped, incised and tied with 0 Vicryl suture removing the fallopian tube and ovary. The distal stump was doubly suture ligated. Same procedure was carried out on the contralateral side. The vesicouterine peritoneal fold was elevated, and the bladder was dissected off of the lower uterine segment with sharp and blunt dissection. The uterus was retracted cephalad and deviated to the right side. Uterine arteries were skeletonized. Three curved Lee clamps were placed at the junction of the lower uterine segment on the uterine vessels. An incision was made between the upper clamp and two lower clamps. The stump was doubly suture ligated with 0 Vicryl. The same procedure was carried out on the contralateral side. The uterus was held in traction in the cephalad position and pubovescial cervical fascia was dissected inferiorly. Two straight Lee clamps were applied to the cardinal ligament. Cardinal ligament was incised between the two clamps and the distal stump was ligated with 0 Vicryl suture. The same procedure was carried out on the contralateral side. Further dissection of the bladder off of the lower uterine segment was needed to proceed with next steps of surgery. During this dissection and cystotomy occurred and was identified. Bilateral uterosacral ligaments were clamped between straight Lee clamps, incised, and suture ligated with 0 Vicryl suture. The lower uterine segment and upper vagina were palpated between the thumb and first finger of the surgeon's hand to ensure that the ligaments have been completely incised. The vagina was entered Bazzi scissors and cut circumferentially with Joregenson scissors. The uterus and bilateral fallopian tubes and ovaries were removed. The edges of the vagina were grasped with straight Lee clamps. Vaginal cuff was closed in a running locking manner with 1 Vicryl suture. Pelvis was irrigated. Hemostasis was noted. Attention was then turned to the bladder. The bladder was backfilled with methylene blue. Cystotomy at bladder dome was completed identified. Bladder was drained. Cystotomy was repaired with 2-0 Vicryl in a two layer closure. The bladder was again back filled and demonstrated good repair with no leakage of methylene blue. Vaginal cuff was reperitonealized with 2-0 Vicryl suture. Hemostasis noted. The pelvis was irrigated with clear return of fluids. At this point all instruments and sponges were removed from the pelvis.? The peritoneum was grasped with Shaylee clamps x 3. The peritoneum was reapproximated with 0 Vicryl suture in a running stitch. The corners of the fascia were grasped with Lee clamps, and the fascia was reapproximated with two # 1 Vicryl suture overlapped to the right of midline. Subcutaneous tissue was irrigated with clear return of fluids. The subcutaneous tissue was reapproximated with 3-0 Vicryl. The skin was reapproximated with Insorb naeem. Steri strips and Telfa were placed over closed Pfannenstiel skin incision. Patient awoke from anesthesia without difficulty and was transferred to the recovery room in stable condition. Condition: stable Disposition: floor Specimens:: 1. Uterus, cervix, bilateral fallopian tubes and ovaries Complications:: 1. Incidental cystotomy secondary to adhesions between bladder and lower uterine segment that was repaired without difficulty
[2023-12-09 10:22] LABS: Microscopic,Cath URINE MICROSCOPIC (MICROSCOPIC)
--- NOTE | 2023-12-09 10:23 | P.PNANES_ITS ---
[facility] Anesthesia Record Part I Anesthesia Record I Intake, IV Amount: 1,300 Hydration: Adequate Estimated blood loss (mL): 200 Urine output (mL): 400 Blood Pressure: 108/70 SaO2: 95 Pulse Rate: 85 Airway Patency: Patent Respiratory Rate: 16 Temperature: 98.9 F Patient is:: Drowsy Stable to PACU at:: 10:18
[2023-12-09 10:48] LABS: Appearance,Urine/Cath CLEAR (Clear); Bilirubin,Cath Negative (Negative); Blood, Urine/Cath Negative (Negative); Color,Urine/Cath YELLOW (Yellow); Glucose,Urine/Cath (UA) Negative (Negative); Ketones,Urine/Cath Negative (Negative); Leukocyte Esterase,Cath Negative (Negative); Nitrate,Cath Negative (Negative); Protein,Urine/Cath Negative (Negative); Specific Gravity, Urine/Cath 1.025 (1.005-1.030); Urobilinogen,Cath 0.2 EU/dl (0.2)
[2023-12-09] MEDS: HYDROMORPHONE 2MG/ML SYRINGE 1 MG IV ×2 (11:01→11:46)
--- NOTE | 2023-12-09 11:32 | EXP.ANES.II ---
[facility] Anesthesia Record Part II Anesthesia Record Part II Discharge Time: 10:48 Destination: Obstetric PACU nurse assessment reviewed?: Yes Patient Condition:: Good Anesthesia Complications:: None Swallowing reflex intact?: Yes Airway Patency: Patent Cyanosis?: No Blood Pressure: 120/73 SaO2: 95 Respiratory Rate: 19 Pulse Rate: 86 Temperature: 98.9 F Mental Status: Alert & Oriented Pain level:: 0 Nausea and/or vomitting:: None Intake, IV Amount: 0 Hydration: Adequate
[2023-12-09] MEDS: PROMETHAZINE HCL 25MG/ML 1ML VIAL 12.5 MG IV (14:39)
[2023-12-09] MEDS: OXYCODONE 5MG IMMEDIATE RELEASE TABLET 5 MG PO (14:40)
[2023-12-09] MEDS: SENNOSIDES 8.6MG/DOCUSATE 50MG TABLET 1 TAB PO (14:40)
[2023-12-09] MEDS: SODIUM CHLORIDE 0.9% 25ML BAG 25 ML IV (14:41)
[2023-12-09] MEDS: CEFAZOLIN SODIUM 1 GM in 0.9 % SODIUM CHLORIDE 50 ML IV ×2 (15:17→22:55)
[2023-12-09] MEDS: LACTATED RINGERS 1000ML 1,000 ML 125 ML IV (15:18)
[2023-12-09] MEDS: METRONIDAZ/SOD CHL 500 MG/100 ML PIGGYBACK 100 MG IV ×2 (15:18→22:59)
--- NOTE | 2023-12-09 15:26 | PC.NURSE ---
No changes from previous assessment. Lungs cta and bowel sounds active x4. Abd tender per pt. low transverse dressing noted. scant amt of serosang drainage. No vaginal bleeding noted. scuds applied. lacy in place draining yellow urine. iv infusing without difficulty. Pain well controlled with medication. Family remains at bedside throughout stay today. Call light within reach
--- NOTE | 2023-12-09 16:33 | PC.NURSE ---
dr mari at bedside
[2023-12-09] MEDS: HYDROMORPHONE 2MG/ML SYRINGE 2 MG IV ×2 (16:56→22:55)
[2023-12-09] MEDS: SODIUM CHLORIDE 0.9% 10ML FLUSH SYRINGE 10 ML IV (16:56)
--- NOTE | 2023-12-09 19:07 | PC.NURSE ---
report to uzma fuentes RN
--- NOTE | 2023-12-09 21:00 | PC.NURSE ---
Patient ambulated with walker and stand by assist around nurses station. TRN educated importance of ambulating for healing, and use of call right when wanting to get out of bed and needing assistance.
[2023-12-09] MEDS: ENOXAPARIN 40MG/0.4ML SYRINGE 40 MG SQ (21:33)
[2023-12-09] MEDS: POLYETHYLENE GLYCOL 3350 17 GM PACKET PO (21:33)
[2023-12-09] MEDS: OXYCODONE 5MG IMMEDIATE RELEASE TABLET PO (21:39)
[2023-12-10] VITALS (8 sets, daily range): BP systolic 93–121; BP diastolic 50–73; PULSE 87–107; RESP 15–18; TEMP 36.6–36.8; O2SAT 94–100
[2023-12-10] MEDS: LACTATED RINGERS 1000ML 1,000 ML 125 ML IV (01:34)
[2023-12-10] MEDS: OXYCODONE 5MG IMMEDIATE RELEASE TABLET PO (06:06)
[2023-12-10] MEDS: ONDANSETRON 4MG/2ML VIAL 4 MG IV (06:07)
[2023-12-10 06:51] LABS: Basophils % 0.2 % (0.1-2.0); Eosinophils % 0.4 % (0.1-12.0); Hematocrit 34.3 % (37.0-47.0); Hemoglobin 10.8 g/dL (12.2-16.2); Lymphocytes # 1.6 K/mm3 (0.7-4.5); Lymphocytes % 17.4 % (10-50); Mean Corpuscular HGB Conc 31.4 g/dL (31.8-35.4); Mean Corpuscular Hemoglobin 27.3 pg (27.0-31.2); Mean Corpuscular Volume 86.7 fl (81-99); Mean Platelet Volume 7.6 fl (7.4-10.4); Monocytes # 0.7 K/mm3 (0.1-1.0); Monocytes % 7.4 % (1.7-9.3); Neutrophils # 6.9 K/mm3 (1.8-7.8); Neutrophils % 74.6 % (37.0-80.0); Platelet Count 245 K/mm3 (142-424); Red Blood Count 3.95 M/mm3 (4.20-5.40); Red Cell Distribution Width 14.1 % (11.5-17.5); White Blood Count 9.3 K/mm3 (4.8-10.8)
[2023-12-10 06:54] LABS: Anion Gap 9.3 mEq/L (5-15); Blood Urea Nitrogen 18 mg/dl (7-17); Calcium 8.8 mg/dl (8.4-10.2); Carbon Dioxide 32 mmol/L (22.0-30.0); Chloride 100 mmol/L (98-107); Creatinine Clearance Estimated 119 mL/min (50-200); Estimated Glomerular Filt Rate 58 ml/min (>60); GFR (African American) 71 ML/MIN (>60); Glucose 117 mg/dl (74-100); Potassium 4.3 mmoL/L (3.5-5.1); Sodium 137 mmol/L (136-145)
[2023-12-10] MEDS: ACETAMINOPHEN 500MG TAB 1000 MG PO ×3 (08:21→20:34)
[2023-12-10] MEDS: ENOXAPARIN 40MG/0.4ML SYRINGE 40 MG SQ (08:22)
[2023-12-10] MEDS: POLYETHYLENE GLYCOL 3350 17 GM PACKET PO ×2 (08:22→20:42)
--- NOTE | 2023-12-10 08:51 | P.PN_ITS ---
Subjective *Date: 12/10/23 *Time: 08:51 Interval history: POD # 1 s/p MANDY, BSO, incidental cystotomy with repair Resting comfortably in bed. Pain not well controlled. Mar catheter in place draining clear urine. Not passing flatus yet. Denies nausea and vomiting. Tolerating regular diet. Denies fever/chills, chest pain and shortness of breath. No lightheadedness or dizziness. Ambulating well with assistance. Denies lower extremity swelling. Medical Exam Vital signs and Labs for Last 24 Hours: Vital Signs Temp Pulse Pulse Resp BP BP Pulse Ox 12/10/23 06:00 12/10/23 05:00 97.9 F 94 H 15 93/50 L 99 12/10/23 04:00 12/10/23 02:00 12/10/23 01:00 98.1 F 95 H 15 115/64 96 12/10/23 00:00 12/10/23 00:00 98 12/09/23 22:00 12/09/23 21:00 98.4 F 109 H 16 125/67 98 12/09/23 20:00 12/09/23 18:03 12/09/23 17:50 98.0 F 113 H 19 112/66 95 12/09/23 16:50 97.9 F 104 H 18 122/70 95 12/09/23 16:34 12/09/23 15:50 104 H 18 122/60 98 12/09/23 14:50 99 H 18 99/43 L 97 12/09/23 14:11 12/09/23 13:50 97.9 F 99 H 17 97/55 L 97 12/09/23 13:20 90 16 113/58 L 95 12/09/23 12:50 103 H 16 90/43 L 95 12/09/23 12:25 12/09/23 12:20 100 H 16 106/45 L 95 12/09/23 11:50 101 H 17 114/48 L 95 12/09/23 11:35 98 H 17 106/47 L 95 12/09/23 11:33 19 12/09/23 11:20 97.9 F 92 H 17 118/51 L 94 L 12/09/23 11:05 87 16 126/60 93 L 12/09/23 11:05 94 L 12/09/23 11:00 97.7 F 82 16 116/55 L 92 L 12/09/23 10:50 97.7 F 82 16 116/55 L 92 L 12/09/23 10:48 86 19 120/73 95 12/09/23 10:38 85 19 116/67 95 12/09/23 10:28 85 19 104/61 L 95 12/09/23 10:24 98.9 F 85 16 108/70 L 12/09/23 10:18 98.9 F 85 19 108/70 L 95 O2 Del Method O2 Flow Rate 12/10/23 06:00 Nasal Cannula 2 12/10/23 05:00 Nasal Cannula 2 12/10/23 04:00 Nasal Cannula 2 12/10/23 02:00 Nasal Cannula 2 12/10/23 01:00 Nasal Cannula 2 12/10/23 00:00 Nasal Cannula 2 12/10/23 00:00 Nasal Cannula 2 12/09/23 22:00 Room Air 12/09/23 21:00 Room Air 12/09/23 20:00 Nasal Cannula 2 12/09/23 18:03 Nasal Cannula 2 12/09/23 17:50 Nasal Cannula 2 12/09/23 16:50 Nasal Cannula 2 12/09/23 16:34 Nasal Cannula 2 12/09/23 15:50 Nasal Cannula 2 12/09/23 14:50 Nasal Cannula 2 12/09/23 14:11 Nasal Cannula 2 12/09/23 13:50 Nasal Cannula 2 12/09/23 13:20 Nasal Cannula 2 12/09/23 12:50 Nasal Cannula 2 12/09/23 12:25 Room Air 12/09/23 12:20 Room Air 12/09/23 11:50 Room Air 12/09/23 11:35 Room Air 12/09/23 11:33 12/09/23 11:20 Room Air 12/09/23 11:05 Room Air 12/09/23 11:05 Room Air 12/09/23 11:00 Room Air 12/09/23 10:50 Room Air 12/09/23 10:48 Room Air 12/09/23 10:38 Room Air 12/09/23 10:28 Room Air 12/09/23 10:24 12/09/23 10:18 Room Air Intake and Output 12/09/23 12/10/23 12/10/23 23:59 07:59 15:59 Output Total 1450 / 2050 2200 / 2200 Balance -1450 / -750 -220 / -2200 Output: Output, Urine Amount 400 / 1000 2199 / 0 Output, Urine Amount (Catheter) 1050 / 1050 Mar 1050 / 1050 Laboratory Results - last 24 hr 12/09/23 : Urine Color Yellow, Urine Appearance Clear, Urine pH 6.0, Ur Specific [place] 1.025, Urine Protein Negative, Urine Glucose (UA) Negative, Urine Ketones Negative, Urine Blood Negative, Urine Nitrate Negative, Urine Bilirubin Negative, Urine Urobilinogen 0.2, Ur Leukocyte Esterase Negative, Urine RBC None, Urine WBC None, Ur Squamous Epith Cells None, Urine Bacteria None 12/10/23 06:33: WBC 9.3, RBC 3.95 L, Hgb 10.8 L, Hct 34.3 L, MCV 86.7, MCH 27.3, MCHC 31.4 L, RDW 14.1, Plt Count 245, MPV 7.6, Neut % (Auto) 74.6, Lymph % (Auto) 17.4, [place] % (Auto) 7.4, Eos % (Auto) 0.4, Baso % (Auto) 0.2, Neut # (Auto) 6.9, Lymph # (Auto) 1.6, [place] # (Auto) 0.7, Eos # (Auto) 0.0, Baso # (Auto) 0.0, Sodium 137, Potassium 4.3, Chloride 100, Carbon Dioxide 32 H, Anion Gap 9.3, BUN 18 H, Creatinine 1.00, Estimated Creat Clear 119, Estimated GFR 58 L, Est GFR ( Amer) 71, Glucose 117 H, Calcium 8.8 I & O for Labs for Last 24 Hours: Intake & Output 12/07/23 12/08/23 12/09/23 12/10/23 23:59 23:59 23:59 23:59 Intake Total 1300 / 1300 Output Total 1450 / 2050 2199 / 2200 Balance -150 / -750 -2200 / -2200 Weight 250 lb 250 lb Head: Present atraumatic and normocephalic ENT: Present normal exam Neck: Present full ROM Respiratory: Present CTA bilaterally and normal respiratory effort Cardiac: Present Reg Rate and Rhythm GI: Present soft and normal bowel sounds; Absent distention, tenderness, guarding or rebound Comments:: Pfannenstiel incision clean/dry/intact with steri strips in place Rectal (female): Present deferred (female): Present deferred Extremities: Present normal inspection and full ROM Comment:: SCDs on Neuro: Present alert, awake and moves all extremities Assessment and Plan *Assessment and plan (1) S/P hysterectomy with oophorectomy: Problem Comment: incidental cystotomy with repair Status: Acute Category: Surgical Code(s): Z90.710 - Acquired absence of both cervix and uterus; Z90.721 - Acquired absence of ovaries, unilateral (2) Morbid obesity with BMI of 40.0-44.9, adult: Status: Acute Category: Medical Code(s): E66.01 - Morbid (severe) obesity due to excess calories; Z68.41 - Body mass index [BMI] 40.0-44.9, adult Plan Continue routine postop care AM Hgb 10.8, AM Cr 1.00 (preoperatively Cr was 1.10) D/c IV narcotics. Okay for Oxy 5-10 mg PO q 4 hours Reviewed medication list. Filomena was taking Diclofenac, Tramadol and Ibuprofen at home. This is likely the cause of elevated Cr prior to surgery. Will repeat Cr this afternoon. Will consider restarting ONE NSAID to help with pain. Pain education regarding NSAID use Encouraged increased ambulation Plan d/c home POD # 2 or POD # 3 Mar catheter to remain in place until 12/23/23
[2023-12-10] MEDS: VENLAFAXINE XR 75MG CAPSULE 75 MG PO (08:59)
[2023-12-10] MEDS: POTASSIUM CHLORIDE 10MEQ TABLET.ER 10 MEQ PO (08:59)
[2023-12-10] MEDS: TIZANIDINE 4MG TABLET 4 MG PO (08:59)
[2023-12-10] MEDS: PANTOPRAZOLE 40MG TABLET 40 MG PO (08:59)
--- NOTE | 2023-12-10 10:00 | PC.NURSE ---
Pts IV removed
--- NOTE | 2023-12-10 11:10 | PC.NURSE ---
Pt assisted x1 with getting up to the bathroom to have a partial bath. Pts bed linens changed and trash taken out. Pt assisted with getting a pad and mesh panties on. ABD binder applied per pts request. Pt ambulated around the unit with stand by assistance. Pt tolerated well.
[2023-12-10] MEDS: OXYCODONE 5MG IMMEDIATE RELEASE TABLET 5 MG PO ×2 (13:42→20:35)
[2023-12-10 15:33] LABS: Creatinine Clearance Estimated 99 mL/min (50-200); Estimated Glomerular Filt Rate 47 ml/min (>60); GFR (African American) 57 ML/MIN (>60)
--- NOTE | 2023-12-10 16:30 | PC.NURSE ---
Pt A&Ox 4, Pt BLT lungs CTA, Bowel sounds present in all 4 quadrants. Abdomen soft and tender. Low transverse incision with Steri-strips C/D/I. Pt on RA. Mar patent and draining clear urine. Pt has ambulated around the unit and sat up to the chair without difficulty. Pt denies any SOA, headache, or N/V.
--- NOTE | 2023-12-10 19:06 | PC.NURSE ---
Report given to Crystal White RN
--- NOTE | 2023-12-10 19:08 | PC.NURSE ---
REPORT RECEIVED FROM Sterling GRIMES RN
[2023-12-10] MEDS: SIMETHICONE 80MG CHEWABLE TABLET 160 MG PO (21:37)
[2023-12-10] MEDS: hydrOXYzine pamoate 25MG CAPSULE 50 MG PO (21:37)
[2023-12-10] MEDS: OXYCODONE 5MG IMMEDIATE RELEASE TABLET 10 MG PO (21:37)
[2023-12-11] MEDS: ACETAMINOPHEN 500MG TAB 1000 MG PO ×4 (03:37→20:30)
[2023-12-11] MEDS: OXYCODONE 5MG IMMEDIATE RELEASE TABLET 10 MG PO ×2 (03:39→08:45)
[2023-12-11] MEDS: SENNOSIDES 8.6MG/DOCUSATE 50MG TABLET 1 TAB PO (03:39)
[2023-12-11] MEDS: SIMETHICONE 80MG CHEWABLE TABLET 160 MG PO (03:40)
[2023-12-11 03:41] VITALS: BP 136/82; PULSE 90; RESP 16; TEMP 36.5; O2SAT 97
--- NOTE | 2023-12-11 03:51 | PC.NURSE ---
Patient remains alert and oriented, has rested well throughout shift, pt rates pain consistently 8/10 on pain scale but has been able to sleep off and on thru pain, pain medication given per orders for pain as well as gas medicine which patient states it helps a lot , lacy catheter remains patent with yellow urine, patient has had 4000ml ouput this shift, vss, bowel sounds active, pt does c/o no bm since surgery prn medication as well as scheduled regimen given to aide in bm with no results thus far, patient ambulated on unit x 1 time without difficulty, incision remains open to air with steri strips intact, abdominal binder in place, call light within reach, no needs at this time
--- NOTE | 2023-12-11 07:04 | PC.NURSE ---
report given to Sunil Denis RN and Sterling Wilburn RN
[2023-12-11 07:35] VITALS: BP 120/77; PULSE 101; RESP 20; TEMP 37; O2SAT 95
[2023-12-11] MEDS: OXYCODONE 5MG IMMEDIATE RELEASE TABLET 5 MG PO ×2 (07:48→21:57)
[2023-12-11] MEDS: VENLAFAXINE XR 75MG CAPSULE 75 MG PO (09:08)
[2023-12-11] MEDS: TIZANIDINE 4MG TABLET 4 MG PO (09:08)
[2023-12-11] MEDS: POLYETHYLENE GLYCOL 3350 17 GM PACKET PO ×2 (09:08→20:29)
[2023-12-11] MEDS: POTASSIUM CHLORIDE 10MEQ TABLET.ER 10 MEQ PO (09:08)
[2023-12-11] MEDS: PANTOPRAZOLE 40MG TABLET 40 MG PO (09:08)
[2023-12-11] MEDS: ENOXAPARIN 40MG/0.4ML SYRINGE 40 MG SQ ×2 (09:09→20:30)
--- NOTE | 2023-12-11 09:45 | PC.NURSE ---
Dr. Portillo at bedside rounding on patinet. Discussed discharge plans for tomorrow. Reviewed home medications with patient. Patient verbalizes understanding. Denies any further concerns or questions.
--- NOTE | 2023-12-11 10:05 | EXP.ACUTE.PN ---
Subjective *Date: 12/11/23 *Time: 10:05 Interval history: She is 2 days postoperatively from a total abdominal hysterectomy bilateral salpingo-oophorectomy through a Pfannenstiel incision. She is doing very well. She denies chest pain, shortness of breath or calf tenderness. She is eating and drinking and ambulating. She has not had a bowel movement yet. She has a Mar catheter still and the urine is clear. Medical Exam Vital signs and Labs for Last 24 Hours: Vital Signs Temp Pulse Resp BP BP Pulse Ox O2 Del Method 12/11/23 09:15 Room Air 12/11/23 08:18 Room Air 12/11/23 07:35 98.6 F 101 H 20 120/77 95 Room Air 12/11/23 07:35 Room Air 12/11/23 07:35 95 Room Air 12/11/23 05:09 Room Air 12/11/23 03:50 Room Air 12/11/23 03:41 97.7 F 90 16 136/82 97 12/11/23 01:29 Room Air 12/10/23 23:11 Room Air 12/10/23 21:00 Room Air 12/10/23 20:40 94 L Room Air 12/10/23 20:00 98.3 F 88 18 115/64 94 L 12/10/23 18:51 Room Air 12/10/23 17:41 98.1 F 87 17 121/73 96 Room Air 12/10/23 17:00 Room Air 12/10/23 15:00 Room Air 12/10/23 13:00 Room Air 12/10/23 11:00 Room Air Intake and Output 12/10/23 12/11/23 12/11/23 19:59 03:59 11:59 Output Total 900 / 5700 4000 / 5700 800 / 5700 Balance -900 / -5700 -4000 / -5700 -800 / -5700 Output: Output, Urine Amount 4000 / 4000 Output, Urine Amount (Catheter) 900 / 1700 800 / 1700 Mar 900 / 1700 800 / 1700 Other: Number of Unmeasured Voids 1 Number of Bowel Movements 0 Laboratory Results - last 24 hr 12/10/23 13:15: Creatinine 1.20 H, Estimated Creat Clear 99, Estimated GFR 47 L, Est GFR ( Amer) 57 L I & O for Labs for Last 24 Hours: Intake & Output 12/08/23 12/09/23 12/10/23 12/11/23 11:59 11:59 11:59 11:59 Intake Total 1300 / 1300 Output Total 4350 / 4350 5700 / 5700 Balance 1300 / 1300 -4350 / -4350 -5700 / -5700 Weight 250 lb 250 lb Head: Present atraumatic ENT: Present normal exam Neck: Present normal inspection Respiratory: Present normal respiratory effort and able to speak in complete sentences; Absent accessory muscle use Comment:: Good air entry bilaterally. Cardiac: Present Reg Rate and Rhythm GI: Present soft; Absent distention Comments:: Her incision is clean and dry. Rectal (female): Present deferred (female): Present deferred Extremities: Present normal inspection Skin: Present intact Assessment and Plan *Assessment and plan (1) S/P hysterectomy with oophorectomy: Problem Comment: incidental cystotomy with repair Status: Acute Category: Surgical Code(s): Z90.710 - Acquired absence of both cervix and uterus; Z90.721 - Acquired absence of ovaries, unilateral (2) Morbid obesity with BMI of 40.0-44.9, adult: Status: Acute Category: Medical Code(s): E66.01 - Morbid (severe) obesity due to excess calories; Z68.41 - Body mass index [BMI] 40.0-44.9, adult (3) Status post endometrial ablation: Status: Acute Category: Surgical Code(s): Z98.890 - Other specified postprocedural states (4) Intraoperative injury of bladder: Status: Acute Category: Medical Code(s): N99.81 - Other intraoperative complications of genitourinary system Plan She is doing very well today. She is eating and drinking and ambulating. Her pain is reasonably well-controlled with oral pain medicine. She has a Mar catheter and will continue this for a couple of weeks at home since she had a small bladder injury. We will consider sending her home with Macrobid to prevent a UTI when she goes home. We have ordered routine blood work today as well. She should be able to go home tomorrow.
[2023-12-11 10:08] LABS: Basophils # 0.1 K/mm3 (0-0.2); Eosinophils # 0.5 K/mm3 (0.0-0.4); Eosinophils % 5.9 % (0.1-12.0); Hematocrit 34.2 % (37.0-47.0); Hemoglobin 11.1 g/dL (12.2-16.2); Lymphocytes # 2.2 K/mm3 (0.7-4.5); Lymphocytes % 28.7 % (10-50); Mean Corpuscular HGB Conc 32.5 g/dL (31.8-35.4); Mean Corpuscular Hemoglobin 27.5 pg (27.0-31.2); Mean Corpuscular Volume 84.7 fl (81-99); Mean Platelet Volume 7.9 fl (7.4-10.4); Monocytes # 0.7 K/mm3 (0.1-1.0); Monocytes % 9.1 % (1.7-9.3); Neutrophils # 4.2 K/mm3 (1.8-7.8); Neutrophils % 55.3 % (37.0-80.0); Platelet Count 294 K/mm3 (142-424); Red Blood Count 4.04 M/mm3 (4.20-5.40); Red Cell Distribution Width 14.2 % (11.5-17.5); White Blood Count 7.5 K/mm3 (4.8-10.8)
[2023-12-11 10:27] LABS: Chloride 102 mmol/L (98-107); Potassium 4.4 mmoL/L (3.5-5.1); Sodium 136 mmol/L (136-145)
[2023-12-11 10:30] LABS: Anion Gap 8.4 mEq/L (5-15); Blood Urea Nitrogen 17 mg/dl (7-17); Calcium 8.9 mg/dl (8.4-10.2); Carbon Dioxide 30 mmol/L (22.0-30.0); Creatinine Clearance Estimated 119 mL/min (50-200); Estimated Glomerular Filt Rate 58 ml/min (>60); GFR (African American) 71 ML/MIN (>60); Glucose 141 mg/dl (74-100)
[2023-12-11 15:47] VITALS: BP 112/79; PULSE 84; RESP 22; TEMP 36.7; O2SAT 96
--- NOTE | 2023-12-11 15:47 | PC.NURSE ---
Patient awake and oriented x4. Bilateral lung sounds clear to auscultation. Apical pulse auscultated with regular rate. Bowel sounds auscultated in all 4 quadrants. Patient reports having BM and relief from that. Abdomen soft yet tender near surgical site. Lower transverse incision asymptomatic and open to air, steri-strips intact. Mar in place with clear, faiza urine. Reports mild headache, drinking caffeine and Tylenol given. Patient denies any further needs or concerns at this time
--- NOTE | 2023-12-11 18:40 | PC.NURSE ---
Patient ambulating in hallway.
--- NOTE | 2023-12-11 19:05 | PC.NURSE ---
report received from Venkatesh KUMAR
--- NOTE | 2023-12-11 19:10 | PC.NURSE ---
All charting and care completed under my direct supervision
[2023-12-11 20:00] VITALS: BP 135/57; PULSE 96; RESP 17; TEMP 36.6; O2SAT 98
[2023-12-11 20:30] VITALS: O2SAT 98
[2023-12-11] MEDS: hydrOXYzine pamoate 25MG CAPSULE 50 MG PO (21:55)
[2023-12-11] MEDS: ONDANSETRON 4MG ODT 4 MG SL (22:32)
--- NOTE | 2023-12-11 23:55 | PC.NURSE ---
Pt called out complaining of a pounding headache, pt states i have had it since 2pm today, and i was hoping it would just go away but it has gotten worse . pts BP was stable at 117/76. called Dr. Portillo at this time, pts complaint reported to provider, ordered to give another 5mg of oxycodone PO, and 10 mg Toradol PO at this time. orders verified and read back.
[2023-12-12] VITALS: BP 109/56; PULSE 90; RESP 17; TEMP 36.7; O2SAT 96
[2023-12-12] MEDS: KETOROLAC 10MG TABLET 10 MG PO (00:06)
[2023-12-12] MEDS: OXYCODONE 5MG IMMEDIATE RELEASE TABLET 5 MG PO (00:07)
[2023-12-12] MEDS: ONDANSETRON 4MG ODT 4 MG SL ×2 (02:27→11:00)
[2023-12-12] MEDS: ACETAMINOPHEN 500MG TAB 1000 MG PO ×2 (04:38→13:24)
--- NOTE | 2023-12-12 04:45 | PC.NURSE ---
Pt awake and oriented x4, patient has c/o headache throughout shift, scheduled medications given, pt states it is better at reassessment. vital signs have been stable, bowel sounds active in all quadrants, bilateral lung sounds clear throughout. pt has rested well on and off throughout the shift. incision site MEDICAL OFFICE CLERK and steri strips still intact. lacy catheter still in place with clear yellow urine, pt has had 2,050ml of urine output this shift so far. pt tolerating PO liquids and regular diet. pt denies needs at this time.
[2023-12-12 04:47] VITALS: BP 119/63; PULSE 73; RESP 17; TEMP 36.7; O2SAT 97
[2023-12-12 08:45] VITALS: BP 103/45; PULSE 94; RESP 17; TEMP 36.7; O2SAT 98
[2023-12-12 09:05] VITALS: BP 108/74; PULSE 95; RESP 18; TEMP 36.6; O2SAT 98
[2023-12-12] MEDS: PANTOPRAZOLE 40MG TABLET 40 MG PO (09:13)
[2023-12-12] MEDS: POLYETHYLENE GLYCOL 3350 17 GM PACKET PO (09:13)
[2023-12-12] MEDS: ENOXAPARIN 40MG/0.4ML SYRINGE 40 MG SQ (09:13)
[2023-12-12] MEDS: TIZANIDINE 4MG TABLET 4 MG PO (09:13)
[2023-12-12] MEDS: VENLAFAXINE XR 75MG CAPSULE 75 MG PO (09:13)
[2023-12-12] MEDS: POTASSIUM CHLORIDE 10MEQ TABLET.ER 10 MEQ PO (09:14)
--- NOTE | 2023-12-12 12:59 | P.DS_ITS ---
General Admission date:: 12/09/23 HPI HPI HPI: Ms Filomena Faith is a 53 yo who presents to [facility] for scheduled surgery. She complains of abnormal uterine bleeding s/p endometrial ablation. She thinks endometrial ablation was performed >/= 6 years ago. She stopped bleeding after the ablation. She first started having irregular bleeding summer 2022. Bleeding occurred again in May 2023. She has cramping with the bleeding. She admits light bleeding can also occur when she picks up her grandkids. She states she had hot flashes and night sweats in the past but nothing in a while. She has history of x 2, cholecystectomy and lysis of adhesions by Dr. Rodriguez. She states Dr. Rodriguez told her she had a lot of scar tissue in her abdomen. Pelvic ultrasound 07/09/23 demonstrated uterus in the midline with a collection of blood and clot within the cervix that measures 2.0 cm. The endometrium is thickened at 14.7 mm. There is a small follicle on the right ovary measuring 2.6 cm. Left ovary is not visualized. Exam Data for Last 24 hours Vital signs and Labs for Last 24 Hours: Temp Pulse Resp BP Pulse Ox O2 Del Method O2 Flow Rate 97.9 F 95 H 18 108/74 L 98 Room Air 2 12/12/23 09:05 12/12/23 09:05 12/12/23 09:05 12/12/23 09:05 12/12/23 09:05 12/12/23 11:00 12/10/23 06:00 I & O for Last 24 hours: Intake & Output 12/09/23 12/10/23 12/11/23 12/12/23 23:59 23:59 23:59 23:59 Intake Total 1300 / 1300 Output Total 1450 / 2050 3800 / 3800 7150 / 7150 2400 / 2400 Balance -150 / -750 -3800 / -3800 -7150 / -7150 -2400 / -2400 Weight 250 lb DS: Diagnosis Discharge Diagnosis (1) S/P hysterectomy with oophorectomy: Status: Acute Code(s): Z90.710 - Acquired absence of both cervix and uterus; Z90.721 - Acquired absence of ovaries, unilateral Problem details: incidental cystotomy with repair (2) Morbid obesity with BMI of 40.0-44.9, adult: Status: Acute Code(s): E66.01 - Morbid (severe) obesity due to excess calories; Z68.41 - Body mass index [BMI] 40.0-44.9, adult (3) Status post endometrial ablation: Status: Acute Code(s): Z98.890 - Other specified postprocedural states (4) Intraoperative injury of bladder: Status: Acute Code(s): N99.81 - Other intraoperative complications of genitourinary system Meds Home Medications and Allergies Home Medications Medication Instructions Recorded Confirmed Type diclofenac sodium 50 mg 50 mg PO TID 10/15/19 12/09/23 History tablet,delayed release esomeprazole magnesium 40 mg 40 mg PO DAILY Reflux/Acid reflux 10/15/19 12/09/23 History capsule,delayed release potassium chloride 10 mEq 10 meq PO DAILY Supplement 10/15/19 12/09/23 History tablet,extended release solifenacin 10 mg tablet 10 mg PO DAILY 10/15/19 12/09/23 History tizanidine 4 mg tablet 4 mg PO DAILY 10/15/19 12/09/23 History venlafaxine 75 mg capsule,extended 75 mg PO DAILY Depression 10/15/19 12/09/23 History release 24 hr lisinopril 10 1 tab PO DAILY BP 08/27/22 12/09/23 History mg-hydrochlorothiazide 12.5 mg tablet fluticasone propionate 50 1 spray intranasal DAILY PRN 12/04/23 12/09/23 History mcg/actuation nasal ALLERGIES spray,suspension (Flonase Allergy Relief) acetaminophen 500 mg tablet 1,000 mg (2 x 500 mg) PO Q6H #60 12/12/23 Rx tabs ondansetron 4 mg disintegrating 4 mg sublingual Q4HP PRN Nausea 12/12/23 Rx tablet #15 tabs oxycodone 5 mg tablet 5 mg PO Q4HP PRN Moderate Pain 12/12/23 Rx (4-6) #10 tabs sennosides 8.6 mg-docusate sodium 1 tab PO BIDP PRN Constipation #30 12/12/23 Rx 50 mg tablet (Stimulant Laxative tabs Plus) simethicone 80 mg chewable tablet 160 mg (2 x 80 mg) PO Q6HP PRN GAS 12/12/23 Rx (Gas Relief 80 (simethicone)) PAIN #60 tabs tizanidine 4 mg tablet 4 mg PO DAILY #10 tabs 12/12/23 Rx tramadol 50 mg tablet 50 mg PO TID #10 tabs 12/12/23 Rx New Prescriptions to Start Prescriptions: ondansetron Felicity Pedroza oxycodone Yovany,Felicity simethicone [Gas Relief 80 (simethicone)] Yovany,Felicity acetaminophen Yovany,Felicity sennosides-docusate sodium [Stimulant Laxative Plus] Yovany,Felicity tizanidine Yovany,Felicity tramadol Felicity Pedroza Allergies Allergy/AdvReac Type Severity Reaction Status Date / Time chlorhexidine Allergy Rash Verified 12/09/23 07:16 [From ChloraPrep Clear] isopropyl alcohol Allergy Rash Verified 12/09/23 07:16 [From ChloraPrep Clear] Latex, Natural Rubber Allergy Verified 12/09/23 06:40 Discharge Plan Disposition Patient Disposition: Home, Self-Care Discharge Order Discharge Orders: Discharge Order (Routine); Ordered 12/12/23 Ordered By: Felicity Pedroza Follow up Plan Follow up with: Eleni Bland DO [Staff Physician] - 12/22/23 9:00 am Prescriptions/Medication Reconciliation: New acetaminophen 500 mg Tablet 1,000 mg PO Q6H Qty: 60 2RF sennosides-docusate sodium [Stimulant Laxative Plus] 8.6-50 mg Tablet 1 tab PO BIDP PRN (Reason: Constipation) Qty: 30 2RF ondansetron 4 mg Tablet,Disintegrating 4 mg sublingual Q4HP PRN (Reason: Nausea) Qty: 15 0RF oxycodone 5 mg Tablet 5 mg PO Q4HP PRN (Reason: Moderate Pain (4-6)) Qty: 10 0RF simethicone [Gas Relief 80 (simethicone)] 80 mg Tablet,Chewable 160 mg PO Q6HP PRN (Reason: GAS PAIN) Qty: 60 2RF tizanidine 4 mg Tablet 4 mg PO DAILY Qty: 10 0RF Continued diclofenac sodium 50 mg tablet,delayed release (DR/EC) 50 mg PO TID esomeprazole magnesium 40 mg capsule,delayed release(DR/EC) 40 mg PO DAILY tizanidine 4 mg tablet 4 mg PO DAILY venlafaxine 75 mg capsule,extended release 24hr 75 mg PO DAILY potassium chloride 10 mEq tablet extended release 10 meq PO DAILY solifenacin 10 mg tablet 10 mg PO DAILY fluticasone propionate [Flonase Allergy Relief] 50 mcg/actuation spray,suspension 1 spray INTRANASAL DAILY PRN (Reason: ALLERGIES) tramadol 50 mg tablet 50 mg PO TID Qty: 10 0RF lisinopril-hydrochlorothiazide 10-12.5 mg tablet 1 tab PO DAILY Problem Reconciliation Problems Reviewed?: Yes Patient Discharge Instructions ACTIVITY: Continue current activity DIET: regular diet Additional Instructions: Hysterectomy Discharge You had a total abdominal hysterectomy and bilateral salpingo-oophorectomy.. This means that your uterus, cervix, ovaries and fallopian tubes were removed. The top of your vagina is closed with dissolvable sutures. You will follow-up in office for a postop visit in 1 to 2 weeks and at 6 weeks. At your 6-week postop appointment you will have a pelvic exam to ensure your cuff is healing well. Your surgery was complicated by a known complication, a bladder injury. You will leave your Mar catheter in for 2 weeks. Your bladder was repaired successfully without any difficulties or problems. Activity: - No lifting more than 10 lbs for 6 weeks. - No driving while you are taking narcotic pain medication. Wound care - You have stitches under your skin which will dissolve over the next 4-6 weeks as your body heals - Keep your wound clean and dry, ok to wash with soap and water but pat thoroughly dry. It is exceptionally important for you to shower every day and keep that area very clean to prevent a wound infection. Medications: -Diclofenac (a nonsteroidal anti-inflammatory) for pain. Please take this medicine scheduled for the first 2-3 days as this will help control your pain. We discussed that this medicine was very similar to ibuprofen and you should not be taking these medications together - Oxycodone (a narcotic pain medication) use the narcotic pain medication for breakthrough or severe pain. You will want to stop the narcotic pain medication first. Narcotic pain medication can be habit forming so please only use this medication if you need it. -Tramadol: This is also a narcotic medication. Please take it for breakthrough pain. You should not be taking this medication with oxycodone. They are very similar medications and can have life-threatening effects if you take them together - Senna (a stool softener) use this medication for constipation as needed. Narcotics can increase your risk for constipation - Simethicone: a gas medication for bloating and gas pain you may experience in the next 1-2 weeks. Please call the office or return to the ER if you have any of the followin. bleeding more than 1 pad an hour for 2 hours 2. pain that does not respond to your narcotic pain medication 3. dizziness or lightheadedness such that you lose consciousness 4. abnormal discharge that looks like pus from your incisions Questions or concerns: It is my privilege to be a part of your [employer] team. Please let me know if you have other questions or concerns. Felicity Pedroza DO [facility] Health Specialist [place], [place] [address] Patient Instructions: DI for Hysterectomy Providers Primary Care Provider: Renée Escudero Admit Provider: Eleni Bland Attending Provider: Eleni Bland
--- NOTE | 2023-12-12 13:35 | PC.NURSE ---
D/C teaching provided at this time, Pt is waiting on her ride to get here. Pt assisted with getting her ABD binder on.
== END 2023-12-12 15:09 | disposition home or self-care (01) | DRG 742 ==
LOC: OB 08:10
PROVIDERS: Nurse Practitioner Obstetrics & Gynecology; Admitting Provider Obstetrics & Gynecology; PCP Nurse Practitioner Family; Visit Provider Obstetrics & Gynecology
PROC: 0UT90ZZ Resection of Uterus, Open Approach (ICD-10-PCS; CPT 58150; principal; 2023-12-09 07:30)
DX: N93.9 Abnormal uterine and vaginal bleeding, unspecified (principal); Z68.41 Body mass index [BMI] 40.0-44.9, adult; Z98.890 Other specified postprocedural states; E66.01 Morbid (severe) obesity due to excess calories; Z87.891 Personal history of nicotine dependence
CPT/HCPCS: 58150; 36415; 80048; 81001; 82565; 85025; 86850; 96374; J3490; C9290; J2405

== ENCOUNTER 2023-12-22 16:49 | Outpatient (CLI) | payer MEDICARE, MEDICAID, SELFPAY | END 2023-12-22 23:59 | disposition home or self-care (01) | LOC: LAB.DROPOF 16:49 | PROVIDERS: PCP Obstetrics & Gynecology; Visit Provider Obstetrics & Gynecology | DX: N39.0 Urinary tract infection, site not specified (principal); B95.2 Enterococcus as the cause of diseases classified elsewhere | CPT/HCPCS: 87086; 87088; 87186 ==

== ENCOUNTER 2024-10-29 14:38 | Outpatient (CLI) | payer MEDICARE, MEDICAID, SELFPAY ==
--- NOTE | 2024-10-29 15:15 | MR_ITS ---
FINAL REPORT CLINICAL HISTORY: Rt Knee Pain, INSTABILITY COMPARISON: None FINDINGS: Multi planar MR imaging was performed of the right knee. The anterior and posterior cruciate ligaments are intact. The quadriceps and patellar tendons are intact. There is linear signal in the posterior horn of the medial meniscus consistent with a tear, best seen on image #22 of series 4. There is a complex lateral meniscus tear involving both the anterior and posterior horns, consistent with a large complex tear. The medial and lateral collateral ligaments appear intact. The medial and lateral retinacula appear intact. There is marked narrowing of the lateral compartment, with multiple osteochondral lesions in the lateral tibial plateau. There are multiple osteochondral lesions on the undersurface of the patella as well, best seen on image #14 of series 6. There is moderate osteophyte formation at the joint margins. A popliteal cyst is present, measuring 4.8 cm in the craniocaudal dimension. A small joint effusion is noted. IMPRESSION: Linear tear posterior horn medial meniscus, as well as a complex tear of the lateral meniscus involving both the anterior and posterior horns. Marked narrowing of the lateral compartment with multiple osteochondral lesions in the lateral tibial plateau. There are also multiple osteochondral lesions on the undersurface of the patella. A popliteal cyst is present along with a moderate joint effusion. Reviewed, Interpreted and Dictated by Haroldo Jewell MD Transcribed by Ginette Vazquez Authenticated and [facility]
== END 2024-10-29 23:59 | disposition home or self-care (01) ==
PROVIDERS: PCP Nurse Practitioner Family; Visit Provider Physician Assistant
DX: M25.561 Pain in right knee (principal); M23.91 Unspecified internal derangement of right knee
CPT/HCPCS: 73721

== ENCOUNTER 2025-01-04 10:28 | Outpatient (CLI) | payer MEDICARE, MEDICAID, SELFPAY ==
[2025-01-04 10:38] VITALS: BMI 41.9
[2025-01-04 11:13] LABS: Anion Gap 9.1 mEq/L (5-15); Blood Urea Nitrogen 18 mg/dl (7-17); Calcium 9.4 mg/dl (8.4-10.2); Carbon Dioxide 31 mmol/L (22.0-30.0); Chloride 105 mmol/L (98-107); Creatinine Clearance Estimated 51 mL/min (50-200); Estimated Glomerular Filt Rate 47 ml/min (>60); GFR (African American) 57 ML/MIN (>60); Glucose 94 mg/dl (74-100); Potassium 4.1 mmoL/L (3.5-5.1); Sodium 141 mmol/L (136-145)
[2025-01-04 11:14] LABS: Basophils # 0.1 K/mm3 (0-0.2); Basophils % 0.8 % (0.1-2.0); Eosinophils # 0.2 Kmm3 (0.0-0.4); Eosinophils % 3.5 % (0.1-12.0); Hematocrit 39.5 % (37.0-47.0); Hemoglobin 12.4 g/dL (12.2-16.2); Immature Granulocytes # 0.01 10^3uL; Immature Granulocytes % 0.2 %; Lymphocytes # 1.5 K/mm3 (0.7-4.5); Lymphocytes % 23.8 % (10-50); Mean Corpuscular HGB Conc 31.4 g/dL (31.8-35.4); Mean Corpuscular Hemoglobin 26.6 pg (27.0-31.2); Mean Corpuscular Volume 84.8 fl (81-99); Mean Platelet Volume 10.3 fl (7.4-10.4); Monocytes # 0.5 K/mm3 (0.1-1.0); Monocytes % 7.3 % (1.7-9.3); Neutrophils # 4.1 K/mm3 (1.8-7.8); Neutrophils % 64.4 % (37.0-80.0); Nucleated Red Blood Cells # 0 10^3/uL; Nucleated Red Blood Cells % 0 %; Platelet Count 294 K/mm3 (142-424); Red Blood Count 4.66 M/mm3 (4.20-5.40); Red Cell Distribution Width 12.9 % (11.5-17.5); Red Cell Distribution Width-SD 39.3 fL; White Blood Count 6.3 K/mm3 (4.8-10.8)
== END 2025-01-04 23:59 | disposition home or self-care (01) ==
LOC: PREOP 10:28
PROVIDERS: PCP Nurse Practitioner Family; Visit Provider Orthopaedic Surgery
DX: Z01.810 Encounter for preprocedural cardiovascular examination (principal); Z01.812 Encounter for preprocedural laboratory examination; R94.31 Abnormal electrocardiogram [ECG] [EKG]
CPT/HCPCS: 80048; 85025

== ENCOUNTER 2025-02-01 08:15 | Day surgery (SDC) | payer MEDICARE, MEDICAID, SELFPAY ==
[2025-02-01] VITALS (9 sets, daily range): BP systolic 101–158; BP diastolic 47–71; PULSE 87–98; RESP 15–18; TEMP 36.1–36.6; O2SAT 95–100; BMI 39.5
[2025-02-01] MEDS: LACTATED RINGERS 1000ML 1,000 ML 100 ML IV (09:08)
--- NOTE | 2025-02-01 09:15 | P.PNANES_ITS ---
[facility] Disclaimer: The information contained in this section may have been updated after the patient was seen, as this information can be updated by other users. Medical History Morbid obesity with BMI of 40.0-44.9, adult Abnormal uterine bleeding Depression Anxiety Back pain Arthritis Cholecystectomy planned Sleep apnea History of gastroesophageal reflux (GERD) Hemorrhoid Allergies Hypertension Edema History of anemia Surgical History History of back surgery History of cholecystectomy S/P hysterectomy with oophorectomy History of colonoscopy History of carpal tunnel release Status post endometrial ablation H/O removal of cyst History of surgery History of Previous back surgery Family History Other Arthritis COPD (chronic obstructive pulmonary disease) Diabetes Heart disease Kidney disease Social History Smoking Status: Former smoker alcohol intake: never substance use type: denies use current occupational status: disabled Travel in the last 8 weeks?: None household members: significant other and children housing: house lives independently: No education level: high school service: No jail: No caffeine: Yes special juen needs: No agree to transfusion: No do you feel safe at home: Yes victim of physical abuse: No victim of emotional abuse: No victim of sexual abuse: No would you like helpful sources: No Have you lived/traveled outside [place] in past 30 days?: No Contact w/someone who lives/traveled outside US past 30 days?: No Exposure to someone with infectious disease in past 14 days?: No Do you have a fever (greater than 100.4 F or 38 C)?: No Have you tested positive for COVID-19?: No Exposed to someone with COVID-19 in past 14 days?: No Do you have a sore throat?: No Do you have a cough?: No Do you have any weakness?: No Are you experiencing any nausea/vomitting?: No Do you have any diarrhea?: No Are you experiencing any unusual bleeding?: No Do you have any muscle aches/pain?: No Do you have any abdominal pain?: No Are you experiencing loss of taste or smell?: No [facility] Anesthesia Checklist Patient Identification Patient Identification: Arm Band and Verbal (Name & ) Structural Data Admitted From: Home Planned Operative Procedure/s: R knee scope Consent for Planned Operative Procedure(s) Verified: Yes Verified Documents: Surgical Consent and History and Physical NPO Status Verified Time NPO: 00:00 Chart Verification Results Verified: ECG Additional verifications Anesthesia Reactions: No Hx Blood Transfusions: No Blood Transfusion Reaction: No Airway Assessment Mallampati Score:: Class II Dentition: Edentulous Neurological Assessment Level of Consciousness: Awake, Alert and Appropriate Hx Seizures: No Anesthesia Plan Anesthesia Risk discussed: Yes Anesthesia Plan: Verified ASA Class: II Anesthesia Type: General
[2025-02-01] MEDS: BUPIVACAINE 0.25% 30ML VIAL 75 MG (09:56)
[2025-02-01] MEDS: RINGERS SOLUTION,LACTATED 6,000 ML 6000 ML IR (09:57)
--- NOTE | 2025-02-01 10:32 | P.PNANES_ITS ---
[facility] Anesthesia Record Part I Anesthesia Record I Intake, IV Amount: 600 Hydration: Adequate Estimated blood loss (mL): 0 Urine output (mL): 0 Blood Pressure: 158/57 SaO2: 100 Pulse Rate: 98 Airway Patency: Patent Respiratory Rate: 18 Temperature: 98 F Patient is:: Awake and Stable Stable to PACU at:: 10:33
[2025-02-01] MEDS: MEPERIDINE 50MG/ML 1ML SYRINGE 50 MG ×2 (10:35→10:45)
--- NOTE | 2025-02-01 10:37 | P.OP_ITS ---
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 Operative note:: Patient identified preoperatively. Right knee marked with yes my initials. Transferred operative suite. Placed upon operative bed. General anesthesia administered and airway secured. Right lower extremity prepped and draped within the knee schofield. Once prepped and draped final operative timeout performed to identify proper patient procedure and extremity. Everyone involved in the case agreed. There were no counter indications to beginning. Did receive preoperative antibiotics. Marking pen was used to haily the bony landmarks of the knee and standard portal sites. Esmarch was used to exsanguinate the extremity pneumatic tourniquet inflated to 300 mmHg. Skin knife was used incise standard anterior lateral portal and blunt with trocar was placed in the patellofemoral joint. I swept directly into the medial joint line where with the help of an 18-gauge spinal needle the anterior medial portal was made. This exchanged with a probe. There is tearing of the posterior horn of the medial meniscus there was subsequent grade III chondromalacia of the medial femoral condyle using a combination of straight biter sucker shaver partial medial meniscectomy was performed to stable rim. Attention was then brought to the intercondylar notch the ACL was seen and intact tension was brought to the lateral joint line within the lateral joint line there is a large complex tear involving most of the body and posterior horn of the lateral meniscus there is also full-thickness cartilage lesion with a kissing lesion from the tear on the lateral tibial plateau and grade 3 area of chondromalacia of the lateral femoral condyle. He has a combination of straight biter and sucker shaver partial lateral meniscectomy was performed to remove torn tissue and obtained stable rim. Scope into the medial lateral gutters and patellofemoral joint there is synovitis in the anterior compartment intercondylar notch which was debrided with a sucker shaver no further pathology was seen the camera was removed the joint was drained Local anesthesia infiltrated the portal sites skin closed with nylon stitch sterile dressing from toe to thigh patient waken anesthesia taken recovery stable condition. Condition: stable Disposition: PACU Complications:: None apparent
--- NOTE | 2025-02-01 13:43 | P.PNANES_ITS ---
[facility] Anesthesia Record Part II Anesthesia Record Part II Discharge Time: 10:53 Destination: Surgical Day Care (OP Surgery) PACU nurse assessment reviewed?: Yes Patient Condition:: Good Anesthesia Complications:: None Swallowing reflex intact?: Yes Airway Patency: Patent Cyanosis?: No Blood Pressure: 145/67 SaO2: 98 Respiratory Rate: 16 Pulse Rate: 87 Temperature: 97.3 F Mental Status: Alert & Oriented Pain level:: 4 Nausea and/or vomitting:: None Intake, IV Amount: 0 Hydration: Adequate
== END 2025-02-01 11:25 | disposition home or self-care (01) ==
PROVIDERS: PCP Nurse Practitioner Family; Visit Provider Orthopaedic Surgery
PROC: (CPT 29870; principal; 2025-02-01 10:00)
DX: S83.281A Other tear of lateral meniscus, current injury, right knee, initial encounter (principal); S83.241A Other tear of medial meniscus, current injury, right knee, initial encounter; M94.261 Chondromalacia, right knee; X58.XXXA Exposure to other specified factors, initial encounter; I10 Essential (primary) hypertension; Z91.040 Latex allergy status; Z88.8 Allergy status to other drugs, medicaments and biological substances; F32.A Depression, unspecified; K21.9 Gastro-esophageal reflux disease without esophagitis; E66.01 Morbid (severe) obesity due to excess calories; Z68.39 Body mass index [BMI] 39.0-39.9, adult; Z87.891 Personal history of nicotine dependence; Z79.899 Other long term (current) drug therapy
CPT/HCPCS: 29881; J0665; J0690; J1100; J1200; J2003; J2175; J2250; J2405; J2704; J3010; J7120

== ENCOUNTER 2025-04-14 13:03 | Outpatient (CLI) | payer MEDICARE, MEDICAID, SELFPAY ==
--- NOTE | 2025-04-14 13:08 | XR_ITS ---
FINAL REPORT CLINICAL HISTORY: left pointer finger pain COMPARISON: None FINDINGS: AP, oblique, and lateral views of the left hand were obtained. There is no prior exam for comparison. There is no acute fracture of the left hand. The joint spaces are preserved. The soft tissues are normal. IMPRESSION: No acute osseous abnormality of the left hand. Reviewed, Interpreted and Dictated by Esther Obrien MD Transcribed by Ginette Vazquez Authenticated and [facility]
== END 2025-04-14 23:59 | disposition home or self-care (01) ==
LOC: RAD 13:05
PROVIDERS: PCP Nurse Practitioner Family; Visit Provider Physician Assistant
DX: M79.645 Pain in left finger(s) (principal)
CPT/HCPCS: 73130

== ENCOUNTER 2025-05-09 13:33 | Outpatient (CLI) | payer MEDICARE, MEDICAID, SELFPAY ==
--- NOTE | 2025-05-09 13:38 | XR_ITS ---
FINAL REPORT CLINICAL HISTORY: right knee pain COMPARISON: 01/21/2023 FINDINGS: RIGHT KNEE 3 views of the right knee were obtained. There is no acute fracture or dislocation. There is degenerative joint disease, progressed from prior exam. Visualized joint spaces are normally aligned. Soft tissues are unremarkable. IMPRESSION: No acute bony abnormality. Reviewed, Interpreted and Dictated by Esther Obrien MD Transcribed by Amanda Yuen Authenticated and [facility]
== END 2025-05-09 23:59 | disposition home or self-care (01) ==
LOC: RAD 13:34
PROVIDERS: PCP Nurse Practitioner Family; Visit Provider Orthopaedic Surgery
DX: M17.11 Unilateral primary osteoarthritis, right knee (principal)
CPT/HCPCS: 73562